=== PATIENT | female | born 1955 | race Caucasian/White ===

== ENCOUNTER → 2016-04-23 | Outpatient (CLI) | payer OTHER ==
[~2016-04-23] MED LIST: MELO15TA6 PO; OXYC-250 PO; TRAM50TA PO
--- NOTE | 2016-04-23 11:45 | RAD ---
Indication chronic pain. AP and lateral views of the right knee were obtained. No acute finding is seen. Significant degenerative changes are not apparent on plain films. IMPRESSION: Normal two-view examination of the right knee.
--- NOTE | 2016-04-23 12:04 | RAD ---
Indication disability determination. AP and lateral views of the lumbar spine were obtained. Vertebral height disc spaces and alignment are unremarkable. Small osteophytes are seen at multiple levels in the lower thoracic and upper lumbar spine. There are some very mild facet degenerative changes at L4-5 and L5-S1. Acute bony finding is not seen. IMPRESSION: Slight degenerative change in the lower thoracic and lumbar spine
== END | disposition home or self-care (01) ==
LOC: RAD 09:40
DX: M13.861 Other specified arthritis, right knee (principal); S83.511A Sprain of anterior cruciate ligament of right knee, initial encounter; S83.221A Peripheral tear of medial meniscus, current injury, right knee, initial encounter; M25.78 Osteophyte, vertebrae; M47.897 Other spondylosis, lumbosacral region; G89.29 Other chronic pain; X58.XXXA Exposure to other specified factors, initial encounter; Y93.89 Activity, other specified; Y92.89 Other specified places as the place of occurrence of the external cause; Y99.8 Other external cause status
CPT/HCPCS: 72100; 73560

== ENCOUNTER → 2019-05-19 | Outpatient (CLI) | payer MEDICARE ==
[2019-04-05 14:54] VITALS: BP 114/59
[~2019-05-19] MED LIST changes: +APIX5TAB PO; +ASPI325T8 PO; +CHOL200027 PO; +CYCL10TA2 PO; +LISI-338 PO; +MULT-650 PO; +OMEP40CA45 PO; -OXYC-250 PO; +OXYC1TAB22 PO; +WARF10TA45 PO; +ZOLPIDEM 5 MG TABLET. PO ONE
--- NOTE | 2019-05-25 13:42 | SLEEP ---
DATE OF STUDY: 05/19/2019 SLEEP STUDY REFERRING PHYSICIAN: Todd Carr MD The patient is a 63-year-old who weighs 187 pounds with a BMI of 35. The patient's Cairo score was 9. The patient underwent diagnostic sleep study performed at [facility]. During the night study, the patient spent 415 minutes in bed and slept for 375 minutes with a sleep efficiency of 90%. Sleep latency was 5 minutes with a REM latency of 215 minutes. Sleep architecture showed increased stage 1 and stage 2 sleep, normal slow wave and reduced REM sleep. During the night study, the patient had 38 obstructive apneas, no central apneas, 9 mixed apneas and 59 hypopneas. The patient's AHI was 17 per hour with a supine AHI of 17 per hour and a REM AHI of 88 per hour. EKG monitoring revealed an average heart rate of 101 beats per minute. There was intermittent tachycardia seen. Possible atrial tachycardia. PLMS were seen at an index of 24 per hour and 1 per hour caused EEG arousals. Nocturnal oximetry study revealed an average oxygen saturation of 94% with the lowest of 84%. A 6% of time oxygen saturation remained between 80% and 89%. Due to low AHI, the patient did not meet the split night criteria for CPAP initiation. IMPRESSION: 1. Moderate sleep apnea-hypopnea syndrome with worsening during rapid eye movement sleep. Total AHI 17 per hour with a rapid eye movement AHI of 88 per hour. 2. Moderate period limb movement in sleep without any significant EEG arousals. 3. Mild nocturnal hypoxia secondary to obstructive sleep apnea. 4. Abnormal EKG with intermittent sinus tachycardia, possible atrial tachycardia. RECOMMENDATION: 1. The patient returned to the sleep lab for CPAP titration. 2. Once the patient is optimally treated with CPAP, then follow up in 4-6 weeks to assess compliance and to document clinical improvement. 3. Weight loss is advised. 4. Avoid [employer] depressants. 5. Cautioned regarding driving until symptoms of sleep apnea resolve with the use of CPAP. 6. PLMS does not need to be treated unless the patient has symptoms of restless legs during the day. 7. If EKG abnormality does not improve with CPAP, then the patient may need Cardiology followup. JAVIER FLEMING MD DR: DARVIN/socorro JOB#: [id number] / [id number]
== END | disposition home or self-care (01) ==
LOC: SLPLAB 19:02
PROVIDERS: ATTEND Internal Medicine Pulmonary Disease
DX: G47.33 Obstructive sleep apnea (adult) (pediatric) (principal); G47.34 Idiopathic sleep related nonobstructive alveolar hypoventilation; G47.61 Periodic limb movement disorder
CPT/HCPCS: 95810

== ENCOUNTER → 2019-05-28 | Outpatient (CLI) | payer MEDICARE ==
[2019-04-05 14:54] VITALS: BP 114/59
[~2019-05-28] MED LIST changes: -ZOLPIDEM 5 MG TABLET. PO ONE
--- NOTE | 2019-05-28 08:45 | CARD ---
MR#: [id number] Date of Study: 05/28/2019 Ordering Physician: BLAS CAI, Referring Physician: BLAS CAI, Tech: Jolene Zhao [facility] APPROVED REPORT EXAM: Two-dimensional and M-mode echocardiogram with Doppler and color Doppler. Other Information Quality : GoodHR: 100bpm Rhythm : NSR INDICATION Pulmonary embolism. Hx: HTN, Tobacco abuse. 2D DIMENSIONS RVDd2.8 (2.9-3.5cm)IVSd1.0 (0.7-1.1cm) Aortic Root(2D)3.0 (2.0-3.7cm)LVDd3.9 (3.9-5.9cm) LVOT Diameter2.1 (1.8-2.4cm)PWd1.0 (0.7-1.1cm) LVDs3.0 (2.5-4.0cm)FS (%) 24.3 % SV32.8 mlLVEF(%)48.9 (>50%) Aortic Valve AoV Peak Rohit.125.8cm/Tao Peak GR.6.3mmHg LVOT Peak Rohit.91.8cm/sAVA (VMAX)2.51cm2 Mitral Valve MV E Lqkqdzst50.3cm/sMV DECEL AYAO145rc MV A Kgtbfuwy95.7cm/sE/A Ratio0.7 MV A Gmulaybs97nd Pulmonary Valve PV Peak Xpkhtfxr41.2cm/s Tricuspid Valve TR P. Ngnsyazw801zn/sRAP PJAFDOZJ0ceSq TR Peak Gr.19feCbCXRY20nnSu Pulmonary Vein S1 Vkofetsh78.5cm/sD2 Krotwtpj93.1cm/s LEFT VENTRICLE The left ventricle is normal size. There is normal left ventricular wall thickness. The left ventricu lar systolic function is normal. The Ejection Fraction is 55-60%. There is normal LV segmental wall m otion. Transmitral Doppler flow pattern is Grade I-abnormal relaxation pattern. RIGHT VENTRICLE The right ventricle is normal size. The right ventricular systolic function is normal. ATRIA The left atrium size is normal. The right atrium size is normal. The interatrial septum is intact wit h no evidence for an atrial septal defect or patent foramen ovale as noted on 2-D or Doppler imaging. AORTIC VALVE The aortic valve is normal in structure and function. No aortic regurgitation. No aortic valvular indio nosis. MITRAL VALVE The mitral valve is normal in structure and function. There is no mitral valve stenosis. No mitral va lve regurgitation noted. TRICUSPID VALVE The tricuspid valve is normal in structure and function. Trace tricuspid regurgitation. The PA pressu re was estimated at 20-25 mmHg. PULMONIC VALVE The pulmonary valve is normal in structure and function. No pulmonic valvular regurgitation. GREAT VESSELS The aortic root is normal in size. The ascending aorta is normal in size. The IVC is normal in size a nd collapses >50% with inspiration. PERICARDIAL EFFUSION There is no evidence of significant pericardial effusion. Critical Notification Critical Value: No <Conclusion> The left ventricular systolic function is normal. The Ejection Fraction is 55-60%. There is normal LV segmental wall motion. Transmitral Doppler flow pattern is Grade I-abnormal relaxation pattern. Trace tricuspid regurgitation. The PA pressure was estimated at 20-25 mmHg. There is no evidence of significant pericardial effusion. Signed by : Low Dennis, Electronically Approved : 05/28/2019 08:44:51
== END | disposition home or self-care (01) ==
LOC: ECHO 07:29
PROVIDERS: ATTEND Internal Medicine Cardiovascular Disease
DX: I26.99 Other pulmonary embolism without acute cor pulmonale (principal); I50.9 Heart failure, unspecified; I11.0 Hypertensive heart disease with heart failure; Z72.0 Tobacco use
CPT/HCPCS: 93306

== ENCOUNTER → 2019-06-02 | Outpatient (CLI) | payer MEDICARE ==
[2019-04-05 14:54] VITALS: BP 114/59
[~2019-06-02] MED LIST changes: +CONTRAST GIVEN. MC PRN; +IOHEXOL 350 MG/ML 100 ML VIAL. IV ONE
--- NOTE | 2019-06-02 12:10 | RAD ---
Chest CTA History: Shortness of air, recent pulmonary embolism Technique: After bolus of intravenous contrast, CT imaging was performed of the chest. Multiplanar reconstruction images to include MIP reconstruction images are submitted. Exposure: One or more of the following individualized dose reduction techniques were utilized for this examination: 1. Automated exposure control 2. Adjustment of the mA and/or kV according to patient size 3. Use of iterative reconstruction technique. Comparison: April 02, 2019 chest CTA Findings: Exam is limited for evaluation for pulmonary embolic disease due to degree of contrast opacification of the pulmonary arteries and also motion. No obvious embolism is identified in the main pulmonary arteries although otherwise not accurately evaluate. There is no pleural or pericardial fluid, pneumothorax, new infiltrate. There is a moderate size hiatal hernia, nonspecific wall thickening of involved segment. There is again left adrenal nodule about 1.8 cm. There has been cholecystectomy. Thoracic aortic caliber is within normal limits, no intraluminal flap. Significantly enlarged nodes are identified of the chest. Impression: 1. Exam is limited for evaluation for pulmonary embolic disease, no obvious embolism in the main pulmonary arteries. 2. There is a moderate size hiatal hernia, nonspecific wall thickening of involved segment. 3. There is again left adrenal nodule. Electronically signed by: Ghassan Tripp MD (06/02/2019 12:07 PM) [id number]
== END | disposition home or self-care (01) ==
LOC: CT 08:53
PROVIDERS: ATTEND Internal Medicine Pulmonary Disease
DX: J98.4 Other disorders of lung (principal); R59.0 Localized enlarged lymph nodes; K44.9 Diaphragmatic hernia without obstruction or gangrene; E27.8 Other specified disorders of adrenal gland; Z90.49 Acquired absence of other specified parts of digestive tract
CPT/HCPCS: 71275; Q9967

== ENCOUNTER 2019-10-11 10:57 | Inpatient (IN) | payer MEDICARE ==
[~2019-10-11] VITALS: Ht 157.5 cm; Wt 85.8 kg
[~2019-10-11 10:57] MED LIST changes: -CONTRAST GIVEN. MC PRN; -IOHEXOL 350 MG/ML 100 ML VIAL. IV ONE
--- NOTE | 2019-10-11 11:33 | PHYS DOC ---
Past Medical History Past Medical History: GERD, Hypertension, Other Additional Past Medical Histor: chronic knee pain Past Surgical History: Knee Replacement, Other Additional Past Surgical Histo: L armandion Smoking Status: Light Tobacco Smoker Alcohol Use: None Drug Use: None General Adult EDM: Chief Complaint: SHORTNESS OF BREATH HPI: HPI: Patient is a 64 year old female who presents with states for the last week she has had a cough and chest pressure and increased shortness of breath. She does smoke. She states that she went and saw her primary care doctor and they placed her on amoxicillin. She states she has 2 days of amoxicillin left. She states that she has been so short of breath that she is been getting dizzy. In the past the patient has a history of end STEMI, PE, BNP, hypertension, GERD. She is currently on Eliquis. She rates her pressure a 9 out of 10. Review of Systems: Review of Systems: \ Respiratory: cough or shortness of breath. [] Cardiovascular: Chest pressure. Denies chest pain or edema. [] Heart Score: HEART Score for Chest Pain: HEART Score for Chest Pain Response (Comments) Value History Moderately Suspicious 1 ECG Nonspecific Repolarizatio 1 Age >45 - < 65 1 Risk Factors >3 Risk Factors or Hx CAD 2 Troponin < Normal Limit 0 Total 5 Risk Factors: Risk Factors: DM, Current or recent (<one month) smoker, HTN, HLP, family history of CAD, obesity. Risk Scores: Score 0 - 3: 2.5% MACE over next 6 weeks - Discharge Home Score 4 - 6: 20.3% MACE over next 6 weeks - Admit for Clinical Observation Score 7 - 10: 72.7% MACE over next 6 weeks - Early Invasive Strategies Allergies: Allergies: Allergies Coded Allergies Type Severity Reaction Last Updated Verified No Known Drug Allergies 06/17/13 No Physical Exam: PE: Constitutional: Well developed, well nourished, no acute distress, non-toxic appearance. [] HENT: Normocephalic, atraumatic, bilateral external ears normal, oropharynx moist, no oral exudates, nose normal. [] Eyes: PERRLA, EOMI, conjunctiva normal, no discharge. [] Neck: Normal range of motion, no tenderness, supple, no stridor. [] Cardiovascular:Heart rate regular rhythm, no murmur [] Lungs & Thorax: upper Bilateral breath sounds clear and lower diminshed to auscultation [] Abdomen: Bowel sounds normal, soft, no tenderness, no masses, no pulsatile masses. [] Skin: Warm, dry, no erythema, no rash. [] Back: No tenderness, no CVA tenderness. [] Extremities: No tenderness, no cyanosis, no clubbing, ROM intact, no edema. [] Neurologic: Alert and oriented X 3, normal motor function, normal sensory function, no focal deficits noted. [] Psychologic: Affect normal, judgement normal, mood normal. [] EKG: EK and read by Dr. Duncan is sinus rhythm and no STEMI. [] Radiology/Procedures: Radiology/Procedures: [] Impression: [address] [address] IMAGING REPORT Signed PATIENT: RON DONATO ACCOUNT: [id number] : 1955 LOCATION: ER AGE: 64 SEX: F EXAM STATUS: REG ER ORD. PHYSICIAN: TRU EL APRN REASON: SOA PROCEDURE: PORTABLE CHEST 1V PORTABLE CHEST 1V Clinical Indication: Reason: SOA / Spl. Instructions: / History: Comparison: AP chest, 04/02/2019. Findings: Atherosclerotic aortic arch. There is a small to moderate-sized hiatal hernia. The cardiac size is normal. Stable small calcified granuloma left lung base. Lungs are otherwise clear. There is no pneumothorax. No pleural effusion is appreciated. No acute bone abnormality. IMPRESSION: 1. No acute cardiopulmonary process. 2. Small to moderate-sized hiatal hernia. Electronically signed by: Aguila Gibson MD (10/11/2019 12:13 PM) [id number] DICTATED and SIGNED BY: AGUILA GIBSON MD DATE: 10/11/[address] [address] IMAGING REPORT Signed PATIENT: RON DONATO ACCOUNT: [id number] : 1955 LOCATION: ER AGE: 64 SEX: F EXAM STATUS: REG ER ORD. PHYSICIAN: TRU EL APRN REASON: SOA, HX PE PROCEDURE: CT ANGIOGRAPHY CHEST EXAM: CT Pulmonary Angiogram INDICATION: Reason: SOA, HX PE / Spl. Instructions: IV OMNI 350 80 MLS / History: TECHNIQUE: Multi-detector row images were acquired from the thoracic inlet through the upper abdomen with the use of IV contrast. Sagittal and coronal images were acquired from the transaxial data. MIP images of the pulmonary arteries were obtained. All CT scans performed at this facility utilize dose optimization techniques as appropriate to the exam, including the following: Automated exposure control and adjustment of the mA and/or KV according to patient size (this includes techniques or standardized protocols for targeted exams where dose is indication/reason for exam). IV CONTRAST: Administered COMPARISON: CT abdomen and pelvis with IV contrast 06/17/2013, CT pulmonary angiogram of 04/02/2019. FINDINGS: PULMONARY ARTERIES: No pulmonary emboli are identified. CARDIOVASCULAR: Unremarkable Aorta is normal caliber. MEDIASTINUM & ANNE-MARIE: No adenopathy or masses. Large hiatal hernia is unchanged.. LUNGS: Calcified granuloma in the lingula. Otherwise no pulmonary infiltrate, nodule, or other focal abnormality. PLEURAL SPACE: No pleural effusions or pneumothorax. OSSEOUS & SOFT TISSUE: Unremarkable ABDOMEN: Left adrenal 1.9 cm nodule with punctate calcification at its superior aspect. This is unchanged from 2014. Cholecystectomy surgical changes. IMPRESSION: 1. No pulmonary emboli or acute cardiopulmonary process shown on CT. 2. Large hiatal hernia. 3. Postcholecystectomy changes and medial limb left adrenal nodule measuring 1.9 cm, likely an adenoma. Electronically signed by: Maribeth Alonso MD (10/11/2019 1:14 PM) [id number] DICTATED and SIGNED BY: MARIBETH ALONSO MD DATE: 10/11/19 1314 Course & Med Decision Making: Course & Med Decision Making Pertinent Labs and Imaging studies reviewed. (See chart for details) COVID-19 CRITERIA: The patient was evaluated during the global COVID-19 pandemic, and that diagnosis was suspected/considered upon their initial presentation. Their evaluation, treatment and testing was consistent with current guidelines for patients who present with complaints or symptoms that may be related to COVID-19. She denies radiation or actual pain. Speaks in full clear sentences but sounds breathless. Ambulatory with a steady gait. Skin pink warm and dry. Patient to be admitted due to health history and heart score. I think that this is respiratory related as any COPD exacerbation rather than cardiac. Patient admitted to Hospitalist. [] Curt Disclaimer: Curt Disclaimer: This electronic medical record was generated, in whole or in part, using a voice recognition dictation system. COVID-19 Patient Risks: Age 65 or older: No Sign of co-morbidity: Yes Exp to person + for COVID: No Exp to PUI: No Travel from affected area: No Lower respiratory symptoms: Yes Fever: No Other: No PPE Use: Full PPE with N95 mask or PAPR: Yes Departure Departure Impression: Primary Impression: Chest pain Qualified Codes: R07.9 - Chest pain, unspecified Disposition: 09 ADMITTED INPATIENT Admitting Physician: ASUNCION Condition: STABLE Referrals: WARD ROSS (PCP) Justicifation of Admission Dx: Justifications for Admission: Justification of Admission Dx: Yes Comments: COPD AND CHEST PRESSURE TRU EL [employer] Oct 11, 2019 11:33
[2019-10-11 12:04] LABS: BASO # 0.1 x10^3/uL (0.0-0.2); BASO % 1 % (0-3); EOS # 0.4 x10^3/uL (0.0-0.7); EOS % 6 % (0-3); HEMATOCRIT 39.5 % (36.0-47.0); HEMOGLOBIN 13.2 g/dL (12.0-15.5); LYMPH # 2.3 x10^3/uL (1.0-4.8); LYMPH % 32 % (24-48); MEAN CORPUSCULAR HEMOGLOBIN 29 pg (25-35); MEAN CORPUSCULAR HGB CONC 34 g/dL (31-37); MEAN CORPUSCULAR VOLUME 87 fL (79-100); MONO # 0.6 x10^3/uL (0.0-1.1); MONO % 8 % (0-9); NEUT # 3.8 x10^3/uL (1.8-7.7); NEUT % 54 % (31-73); PLATELET COUNT 398 x10^3/uL (140-400); RED BLOOD COUNT 4.52 x10^6/uL (3.50-5.40); RED CELL DISTRIBUTION WIDTH 13.3 % (11.5-14.5); WHITE BLOOD COUNT 7.1 x10^3/uL (4.0-11.0)
[2019-10-11 12:05] LABS: BILIRUBIN,URINE NEGATIVE (NEG); CLARITY,URINE CLEAR; COLOR,URINE YELLOW; NITRITE,URINE NEGATIVE (NEG); PH,URINE 5.5 (<5.0-8.0); PROTEIN,URINE NEGATIVE (NEG-TRACE); UROBILINOGEN,URINE 0.2 mg/dL (0.2 mg/dL)
[2019-10-11 12:11] LABS: AMPHETAMINE/METHAMPHETAMINE NEG (NEG); BARBITURATES NEG (NEG); BENZODIAZEPINES NEG (NEG); CANNABINOIDS NEG (NEG); COCAINE NEG (NEG); METHADONE NEG (NEG); OPIATES NEG (NEG); PHENCYCLIDINE NEG (NEG)
[2019-10-11 12:14] LABS: SQUAMOUS EPITHELIAL CELL,UR MOD /LPF
[2019-10-11 12:15] LABS: BACTERIA,URINE FEW /HPF (0-FEW); RBC,URINE 0 /HPF (0-2)
[2019-10-11 12:16] LABS: CALCIUM 8.9 mg/dL (8.5-10.1); POTASSIUM 4.3 mmol/L (3.5-5.1)
--- NOTE | 2019-10-11 12:16 | RAD ---
PORTABLE CHEST 1V Clinical Indication: Reason: SOA / Spl. Instructions: / History: Comparison: AP chest, 04/02/2019. Findings: Atherosclerotic aortic arch. There is a small to moderate-sized hiatal hernia. The cardiac size is normal. Stable small calcified granuloma left lung base. Lungs are otherwise clear. There is no pneumothorax. No pleural effusion is appreciated. No acute bone abnormality. IMPRESSION: 1. No acute cardiopulmonary process. 2. Small to moderate-sized hiatal hernia. Electronically signed by: Aguila Gibson MD (10/11/2019 12:13 PM) [id number]
[2019-10-11 12:19] LABS: PROTHROMBIN TIME PATIENT 14.4 SEC (11.7-14.0)
[2019-10-11 12:22] LABS: ALBUMIN 3.2 g/dL (3.4-5.0); TOTAL BILIRUBIN 0.3 mg/dL (0.2-1.0); TOTAL PROTEIN 6.5 g/dL (6.4-8.2)
[2019-10-11] MEDS ORDERED: ALBUTEROL SULFATE 2.5 MG/3 ML NEBU. NEB ONE (12:45)
[2019-10-11] MEDS ORDERED: CONTRAST GIVEN. MC PRN (12:45)
[2019-10-11] MEDS ORDERED: IOHEXOL 350 MG/ML 100 ML VIAL. IV ONE (12:45)
--- NOTE | 2019-10-11 13:17 | RAD ---
EXAM: CT Pulmonary Angiogram INDICATION: Reason: SOA, HX PE / Spl. Instructions: IV OMNI 350 80 MLS / History: TECHNIQUE: Multi-detector row images were acquired from the thoracic inlet through the upper abdomen with the use of IV contrast. Sagittal and coronal images were acquired from the transaxial data. MIP images of the pulmonary arteries were obtained. All CT scans performed at this facility utilize dose optimization techniques as appropriate to the exam, including the following: Automated exposure control and adjustment of the mA and/or KV according to patient size (this includes techniques or standardized protocols for targeted exams where dose is indication/reason for exam). IV CONTRAST: Administered COMPARISON: CT abdomen and pelvis with IV contrast 06/17/2013, CT pulmonary angiogram of 04/02/2019. FINDINGS: PULMONARY ARTERIES: No pulmonary emboli are identified. CARDIOVASCULAR: Unremarkable Aorta is normal caliber. MEDIASTINUM & ANNE-MARIE: No adenopathy or masses. Large hiatal hernia is unchanged.. LUNGS: Calcified granuloma in the lingula. Otherwise no pulmonary infiltrate, nodule, or other focal abnormality. PLEURAL SPACE: No pleural effusions or pneumothorax. OSSEOUS & SOFT TISSUE: Unremarkable ABDOMEN: Left adrenal 1.9 cm nodule with punctate calcification at its superior aspect. This is unchanged from 2014. Cholecystectomy surgical changes. IMPRESSION: 1. No pulmonary emboli or acute cardiopulmonary process shown on CT. 2. Large hiatal hernia. 3. Postcholecystectomy changes and medial limb left adrenal nodule measuring 1.9 cm, likely an adenoma. Electronically signed by: Huma Alonso MD (10/11/2019 1:14 PM) [id number]
[2019-10-11] MEDS ORDERED: methylPREDNISolone SOD SUCC PF 125 MG/2 ML VIAL. IV ONE (13:30)
[2019-10-11 13:53] LABS: BASE EXCESS COOX 0 mmol/L (-3-3); HCO3 COOX 25 mmol/L (21-28); METHEMOGLOBIN 0.2 % (0.0-1.9); OXYHEMOGLOBIN 93.1 %; PCO2 COOX 46 mmHg (35-46); PO2 COOX 81 mmHg (65-108); SAT O2 COOX 96 % (92-99)
--- NOTE | 2019-10-11 13:53 | EKG ---
[facility] [address] [place] [address] Test Date: 2019-10-11 Test Time: 11:31:50 Pat Name: RON DONATO Department: Room: Gender: F Detasseler: : 1955 Requested By: TRU EL Order Number: [id number] Reading MD: Measurements Intervals [place] Rate: 88 P: 59 NC: 136 QRS: -46 QRSD: 88 T: 19 QT: 364 QTc: 444 Interpretive Statements SINUS RHYTHM ABNORMAL LEFT AXIS DEVIATION LEFT ANTERIOR FASCICULAR BLOCK QRS(T) CONTOUR ABNORMALITY CONSIDER ANTEROSEPTAL MYOCARDIAL DAMAGE ABNORMAL ECG RI6.02 No previous ECG available for comparison
[2019-10-11] MEDS ORDERED: fentaNYL PF VIAL 100 MCG/2 ML VIAL IV PRN (14:15)
[2019-10-11] MEDS ORDERED: ONDANSETRON PF 4 MG/2 ML VIAL. IV PRN ×2 (14:15→15:45)
--- NOTE | 2019-10-11 14:26 | PDOC1 ---
History and Physical Date of Admission Date of Admission DATE: 10/11/19 TIME: 14:26 Identification/Chief Complaint Chief Complaint Shortness of breath, fatigue Source Source: Patient History of Present Illness History of Present Illness Ms Bland is a 64 yo F w/ PMHx PE, HTN, GERD, OA, smoker [id number] who p/w increased shortness of breath for the past 7 days. She does have cough with initially no sputum production, but rhinitis and left maxillary pain. She was treated for sinusitis with amoxicilin by her PCP, but has not felt like she is improving. She has felt dizzy, did not have syncopal episode. She did have some chest tightness with pressure, non-radiating 8/10 at worst. Nothing improves or worsens it. She does admit that lately she has been taking 1 year old eliquis samples as she has been having difficulty affording this. I have offered transition to coumadin. She denies fever or chills or recent sick contacts. She does continue to smoke. She was tachycardic and tachypneic with O2 saturations above 88%, she underwent CTPA performed with no evidence of acute problem. Labs essentially WNL. ABG 7.36/46/81 on room air. Admitted for further treatment of her respiratory distress Past Medical History Cardiovascular: HTN Pulmonary: Pulmonary embolus GI: GERD Heme/Onc: No pertinent hx Hepatobiliary: No pertinent hx Psych: No pertinent hx Musculoskeletal: Other Rheumatologic: No pertinent hx Infectious disease: No pertinent hx Renal/: No pertinent hx Endocrine: No pertinent hx Past Surgical History Past Surgical History: Total knee replacement, Hysterectomy Family History Family History: Diabetes, Hypertension Social History Smoke: 1 pack per day ALCOHOL: none Drugs: None Current Problem List Problem List Problems Medical Problems: (1) Chest pain Status: Acute Current Medications Current Medications Current Medications Albuterol Sulfate (Ventolin Neb Soln) 2.5 mg 1X ONCE NEB ; Start 10/11/19 at 12:45; Stop 10/11/19 at 12:46; Status DC Iohexol (Omnipaque 350 Mg/ml) 80 ml 1X ONCE IV Last administered on 10/11/19at 12:51; Start 10/11/19 at 12:45; Stop 10/11/19 at 12:46; Status DC Info (CONTRAST GIVEN -- Rx MONITORING) 1 each PRN DAILY PRN MC SEE COMMENTS; Start 10/11/19 at 12:45; Stop 10/13/19 at 12:44 Methylprednisolone Sodium Succinate (SOLU-Medrol 125MG VIAL) 125 mg 1X ONCE IV Last administered on 10/11/19at 13:50; Start 10/11/19 at 13:30; Stop 10/11/19 at 13:31; Status DC Ondansetron HCl (Zofran) 4 mg PRN Q8HRS PRN IV NAUSEA/VOMITING; Start 10/11/19 at 14:15; Stop 10/12/19 at 14:14 Fentanyl Citrate (Fentanyl 2ml Vial) 50 mcg PRN Q1HR PRN IV PAIN; Start at 14:15; Stop 10/12/19 at 14:14 Active Scripts Active Coumadin (Warfarin Sodium) 10 Mg Tablet 6 Mg PO DAILY PRN 30 Days Eliquis (Apixaban) 5 Mg Tablet 5 Mg PO BID 30 Days 10mg BID for 7 days, then 5mg BID thereafter for 90 days Cyclobenzaprine Hcl 10 Mg Tablet 1 Tab PO PRN TID PRN 10 Days Reported Lisinopril 5 Mg Tablet 1 Tab PO DAILY Omeprazole 40 Mg Capsule.dr 1 Cap PO DAILY Vitamin D3 (Cholecalciferol (Vitamin D3)) 2,000 Unit Tablet 1 Tab PO DAILY 30 Days Centrum Silver Women Tablet (Multivits-Min/Iron/FA/Lutein) 1 Each Tablet 1 Each PO DAILY Aspirin 325 Mg Tablet 1 Tab PO DAILY Mobic (Meloxicam) 15 Mg Tablet 15 Mg PO DAILY Percocet 10-325 Mg Tablet (Oxycodone/Acetaminophen) 1 Each Tablet 1 Each PO PRN QID PRN Allergies Allergies: Coded Allergies: No Known Drug Allergies (Unverified , 06/17/13) ROS General: YES: Fatigue, Malaise; No: Chills, Night Sweats, Appetite, Other PSYCHOLOGICAL ROS: No: Anxiety, Behavioral Disorder, Concentration difficultie, Decreased libido, Depression, Disorientation, Hallucinations, Hostility, Irritablity, Memory difficulties, Mood Swings, Obsessive thoughts, Physical abuse, Sexual abuse, Sleep disturbances, Suicidal ideation, Other Eyes: No Blurry vision, No Decreased vision, No Double vision, No Dry eyes, No Excessive tearing, No Eye Pain, No Itchy Eyes, No Loss of vision, No Photophobia, No Scotomata, No Uses contacts, No Uses glasses, No Other HEENT: No: Heacaches, Visual Changes, Hearing change, Nasal congestion, Nasal discharge, Oral lesions, Sinus pain, Sore Throat, Epistaxis, Sneezing, Snoring, Tinnitus, Vertigo, Vocal changes, Other ALLERGY AND IMMUNOLOGY: No: Hives, Insect Bite Sensitivity, Itchy/Watery Eyes, Nasal Congestion, Post Nasal Drip, Seasonal Allergies, Other Hematological and Lymphatic: YES: Blood Clots; No: Bleeding Problems, Blood Transfusions, Brusing, Night Sweats, Pallor, Swollen Lymph Nodes, Other ENDOCRINE: No: Breast Changes, Galactorrhea, Hair Pattern Changes, Hot Flashes, Malaise/lethargy, Mood Swings, Palpitations, Polydipsia/polyuria, Skin Changes, Temperature Intolerance, Unexpected Weight Changes, Other Breast: No New/Changing Breast Lumps, No Nipple changes, No Nipple discharge, No Other Respiratory: YES: Cough, Shortness of breath, SOB with excertion, Tachypnea, Wheezing; No: Hemoptysis, Orthopnea, Pleuritic Pain, Sputum Changes, Stridor, Other Cardiovascular: yes Chest Pain; No Palpitations, No Orthopnea, No Paroxysmal Noc. Dyspnea, No Edema, No Lt Headedness, No Other Gastrointestinal: No Nausea, No Vomiting, No Abdominal Pain, No Diarrhea, No Constipation, No Melena, No Hematochezia, No Other Genitourinary: No Dysuria, No Frequency, No Incontinence, No Hematuria, No Retention, No Discharge, No Urgency, No Pain, No Flank Pain, No Other, No , No , No , No , No , No , No Musculoskeletal: No Gait Disturbance, No Joint Pain, No Joint Stiffness, No Joint Swelling, No Muscle Pain, No Muscular Weakness, No Pain In:, No Swelling In:, No Other Neurological: No Behavorial Changes, No Bowel/Bladder ControlChng, No Confusion, No Dizziness, No Gait Disturbance, No Headaches, No Impaired Coord/balance, No Memory Loss, No Numbness/Tingling, No Seizures, No Speech Problems, No Tremors, No Visual Changes, No Weakness, No Other Skin: No Dry Skin, No Eczema, No Hair Changes, No Lumps, No Mole Changes, No Mottling, No Nail Changes, No Pruritus, No Rash, No Skin Lesion Changes, No Other, No Acne Physical Exam General: Alert, Oriented X3, Cooperative, moderate distress HEENT: Atraumatic, PERRLA, EOMI, Mucous membr. moist/pink Lungs: Other (Diffuse wheezing) Heart: S1S2, RRR, no thrills, no rubs, no gallops, no murmurs Abdomen: Normal bowel sounds, Soft, No tenderness, No hepatosplenomegaly, No masses Rectal Exam: not examined Extremities: No clubbing, No cyanosis, No edema, Normal pulses, No tenderness/swelling Skin: No rashes, No breakdown, No significant lesion Neuro: Normal gait, Normal speech, Strength at 5/5 X4 ext, Normal tone, Sensation intact, Cranial nerves 3-12 NL, Reflexes 2+ Psych/Mental Status: Mental status NL, Mood NL Vitals Vitals Vital Signs Date Time Temp Pulse Resp B/P (MAP) Pulse Ox O2 Delivery O2 Flow Rate FiO2 10/11/19 12:56 115/62 (79) Room Air 10/11/19 12:35 72 95 10/11/19 11:33 99.0 22 99.0 Labs Labs Laboratory Tests Test 10/11/19 11:50 10/11/19 11:54 10/11/19 12:30 White Blood Count 7.1 x10^3/uL (4.0-11.0) Red Blood Count 4.52 x10^6/uL (3.50-5.40) Hemoglobin 13.2 g/dL (12.0-15.5) Hematocrit 39.5 % (36.0-47.0) Mean Corpuscular Volume 87 fL (79-100) Mean Corpuscular Hemoglobin 29 pg (25-35) Mean Corpuscular Hemoglobin Concent 34 g/dL (31-37) Red Cell Distribution Width 13.3 % (11.5-14.5) Platelet Count 398 x10^3/uL (140-400) Neutrophils (%) (Auto) 54 % (31-73) Lymphocytes (%) (Auto) 32 % (24-48) Monocytes (%) (Auto) 8 % (0-9) Eosinophils (%) (Auto) 6 % (0-3) Basophils (%) (Auto) 1 % (0-3) Neutrophils # (Auto) 3.8 x10^3/uL (1.8-7.7) Lymphocytes # (Auto) 2.3 x10^3/uL (1.0-4.8) Monocytes # (Auto) 0.6 x10^3/uL (0.0-1.1) Eosinophils # (Auto) 0.4 x10^3/uL (0.0-0.7) Basophils # (Auto) 0.1 x10^3/uL (0.0-0.2) Prothrombin Time 14.4 SEC (11.7-14.0) Prothromb Time International Ratio 1.2 (0.8-1.1) Sodium Level 140 mmol/L (136-145) Potassium Level 4.3 mmol/L (3.5-5.1) Chloride Level 104 mmol/L (98-107) Carbon Dioxide Level 25 mmol/L (21-32) Anion Gap 11 (6-14) Blood Urea Nitrogen 16 mg/dL (7-20) Creatinine 1.0 mg/dL (0.6-1.0) Estimated GFR (Cockcroft-Gault) 56.0 BUN/Creatinine Ratio 16 (6-20) Glucose Level 113 mg/dL (70-99) Calcium Level 8.9 mg/dL (8.5-10.1) Total Bilirubin 0.3 mg/dL (0.2-1.0) Aspartate Amino Transf (AST/SGOT) 18 U/L (15-37) Alanine Aminotransferase (ALT/SGPT) 30 U/L (14-59) Alkaline Phosphatase 119 U/L (46-116) Troponin I Quantitative < 0.017 ng/mL (0.000-0.055) AO-Uqs-R-Type Natriuretic Peptide 20 pg/mL (0-124) Total Protein 6.5 g/dL (6.4-8.2) Albumin 3.2 g/dL (3.4-5.0) Albumin/Globulin Ratio 1.0 (1.0-1.7) Urine Collection Type Unknown Urine Color Yellow Urine Clarity Clear Urine pH 5.5 (<5.0-8.0) Urine Specific [place] 1.010 (1.000-1.030) Urine Protein Negative mg/dL (NEG-TRACE) Urine Glucose (UA) Negative mg/dL (NEG) Urine Ketones (Stick) Negative mg/dL (NEG) Urine Blood Negative (NEG) Urine Nitrite Negative (NEG) Urine Bilirubin Negative (NEG) Urine Urobilinogen Dipstick 0.2 mg/dL (0.2 mg/dL) Urine Leukocyte Esterase Trace (NEG) Urine RBC 0 /HPF (0-2) Urine WBC 5-10 /HPF (0-4) Urine Squamous Epithelial Cells Mod /LPF Urine Bacteria Few /HPF (0-FEW) Urine Mucus Marked /LPF Urine Opiates Screen Neg (NEG) Urine Methadone Screen Neg (NEG) Urine Barbiturates Neg (NEG) Urine Phencyclidine Screen Neg (NEG) Urine Amphetamine/Methamphetamine Neg (NEG) Urine Benzodiazepines Screen Neg (NEG) Urine Cocaine Screen Neg (NEG) Urine Cannabinoids Screen Neg (NEG) Urine Ethyl Alcohol Neg (NEG) O2 Saturation 96 % (92-99) Arterial Blood pH 7.36 (7.35-7.45) Arterial Blood pCO2 at Patient Temp 46 mmHg (35-46) Arterial Blood pO2 at Patient Temp 81 mmHg (65-108) Arterial Blood HCO3 25 mmol/L (21-28) Arterial Blood Base Excess 0 mmol/L (-3-3) Oxyhemoglobin 93.1 % Methemoglobin 0.2 % (0.0-1.9) Carbon Monoxide, Quantitative 2.4 % (0.0-1.9) FiO2 21 Laboratory Tests Test 10/11/19 11:50 10/11/19 11:54 10/11/19 12:30 White Blood Count 7.1 x10^3/uL (4.0-11.0) Red Blood Count 4.52 x10^6/uL (3.50-5.40) Hemoglobin 13.2 g/dL (12.0-15.5) Hematocrit 39.5 % (36.0-47.0) Mean Corpuscular Volume 87 fL (79-100) Mean Corpuscular Hemoglobin 29 pg (25-35) Mean Corpuscular Hemoglobin Concent 34 g/dL (31-37) Red Cell Distribution Width 13.3 % (11.5-14.5) Platelet Count 398 x10^3/uL (140-400) Neutrophils (%) (Auto) 54 % (31-73) Lymphocytes (%) (Auto) 32 % (24-48) Monocytes (%) (Auto) 8 % (0-9) Eosinophils (%) (Auto) 6 % (0-3) Basophils (%) (Auto) 1 % (0-3) Neutrophils # (Auto) 3.8 x10^3/uL (1.8-7.7) Lymphocytes # (Auto) 2.3 x10^3/uL (1.0-4.8) Monocytes # (Auto) 0.6 x10^3/uL (0.0-1.1) Eosinophils # (Auto) 0.4 x10^3/uL (0.0-0.7) Basophils # (Auto) 0.1 x10^3/uL (0.0-0.2) Prothrombin Time 14.4 SEC (11.7-14.0) Prothromb Time International Ratio 1.2 (0.8-1.1) Sodium Level 140 mmol/L (136-145) Potassium Level 4.3 mmol/L (3.5-5.1) Chloride Level 104 mmol/L (98-107) Carbon Dioxide Level 25 mmol/L (21-32) Anion Gap 11 (6-14) Blood Urea Nitrogen 16 mg/dL (7-20) Creatinine 1.0 mg/dL (0.6-1.0) Estimated GFR (Cockcroft-Gault) 56.0 BUN/Creatinine Ratio 16 (6-20) Glucose Level 113 mg/dL (70-99) Calcium Level 8.9 mg/dL (8.5-10.1) Total Bilirubin 0.3 mg/dL (0.2-1.0) Aspartate Amino Transf (AST/SGOT) 18 U/L (15-37) Alanine Aminotransferase (ALT/SGPT) 30 U/L (14-59) Alkaline Phosphatase 119 U/L (46-116) Troponin I Quantitative < 0.017 ng/mL (0.000-0.055) ZU-Wjs-Y-Type Natriuretic Peptide 20 pg/mL (0-124) Total Protein 6.5 g/dL (6.4-8.2) Albumin 3.2 g/dL (3.4-5.0) Albumin/Globulin Ratio 1.0 (1.0-1.7) Urine Collection Type Unknown Urine Color Yellow Urine Clarity Clear Urine pH 5.5 (<5.0-8.0) Urine Specific [place] 1.010 (1.000-1.030) Urine Protein Negative mg/dL (NEG-TRACE) Urine Glucose (UA) Negative mg/dL (NEG) Urine Ketones (Stick) Negative mg/dL (NEG) Urine Blood Negative (NEG) Urine Nitrite Negative (NEG) Urine Bilirubin Negative (NEG) Urine Urobilinogen Dipstick 0.2 mg/dL (0.2 mg/dL) Urine Leukocyte Esterase Trace (NEG) Urine RBC 0 /HPF (0-2) Urine WBC 5-10 /HPF (0-4) Urine Squamous Epithelial Cells Mod /LPF Urine Bacteria Few /HPF (0-FEW) Urine Mucus Marked /LPF Urine Opiates Screen Neg (NEG) Urine Methadone Screen Neg (NEG) Urine Barbiturates Neg (NEG) Urine Phencyclidine Screen Neg (NEG) Urine Amphetamine/Methamphetamine Neg (NEG) Urine Benzodiazepines Screen Neg (NEG) Urine Cocaine Screen Neg (NEG) Urine Cannabinoids Screen Neg (NEG) Urine Ethyl Alcohol Neg (NEG) O2 Saturation 96 % (92-99) Arterial Blood pH 7.36 (7.35-7.45) Arterial Blood pCO2 at Patient Temp 46 mmHg (35-46) Arterial Blood pO2 at Patient Temp 81 mmHg (65-108) Arterial Blood HCO3 25 mmol/L (21-28) Arterial Blood Base Excess 0 mmol/L (-3-3) Oxyhemoglobin 93.1 % Methemoglobin 0.2 % (0.0-1.9) Carbon Monoxide, Quantitative 2.4 % (0.0-1.9) FiO2 21 Images Images CXR: Atherosclerotic aortic arch. There is a small to moderate-sized hiatal hernia. The cardiac size is normal. Stable small calcified granuloma left lung base. Lungs are otherwise clear. There is no pneumothorax. No pleural effusion is appreciated. No acute bone abnormality. IMPRESSION: 1. No acute cardiopulmonary process. 2. Small to moderate-sized hiatal hernia. CTPA: PULMONARY ARTERIES: No pulmonary emboli are identified. CARDIOVASCULAR: Unremarkable Aorta is normal caliber. MEDIASTINUM & ANNE-MARIE: No adenopathy or masses. Large hiatal hernia is unchanged.. LUNGS: Calcified granuloma in the lingula. Otherwise no pulmonary infiltrate, nodule, or other focal abnormality PLEURAL SPACE: No pleural effusions or pneumothorax. OSSEOUS & SOFT TISSUE: Unremarkable ABDOMEN: Left adrenal 1.9 cm nodule with punctate calcification at its superior aspect. This is unchanged from 2014. Cholecystectomy surgical changes. IMPRESSION: 1. No pulmonary emboli or acute cardiopulmonary process shown on CT. 2. Large hiatal hernia. 3. Postcholecystectomy changes and medial limb left adrenal nodule measuring 1.9 cm, likely an adenoma. VTE Prophylaxis Ordered VTE Prophylaxis Devices: Yes VTE Pharmacological Prophylaxi: Yes Assessment/Plan Assessment/Plan A/P: Shortness of breath - still smoking lives with smokers. Counseled on cessation. treat for acute COPD exacerbation, check TSH, trend troponins Chest pain - with large hiatal hernia, atypical for cardiac chest pain. Will cont PPI, trend troponins, monitor on telemetry H/o PE - with right heart strain on CT. cont on eliquis Smoker - counseled on cessation Hypertension - Monitor, hold meds History of arthritis - ok for tylenol, muscle relaxants Gastroesophageal reflux disease - cont PPI Hiatal hernia - PPI FEN - General diet PPX - eliquis FULL CODE Dispo - inpatient for COPD exacerbation Justicifation of Admission Dx: Justifications for Admission: Justification of Admission Dx: Yes Acute COPD Exacerbation: Acute COPD Exacerbation SUNDAR WHITESIDE MD Oct 11, 2019 14:26
[2019-10-11] MEDS ORDERED: IPRATRPIUM/ALBUTEROL 0.5/2.5MG 3 ML NEBU. NEB PRN (15:45)
[2019-10-11] MEDS ORDERED: ALBUTEROL SULFATE 2.5 MG/3 ML NEBU. NEB PRN (15:45)
[2019-10-11] MEDS: methylPREDNISolone SOD SUCC PF 40 MG/ML VIAL. IV SCH ×2 (17:00→20:33)
[2019-10-11] MEDS ORDERED: ANTI-COAG MONITOR BY PHARMACY. MC PRN (17:00)
[2019-10-11] MEDS ORDERED: BUDESONIDE 0.5 MG/2 ML NEBU. NEB PRN (18:30)
[2019-10-11 19:00] VITALS: BP 137/75
--- NOTE | 2019-10-11 20:00 | NUR ---
The patient, RON DONATO, 64 y/o, F admitted by SUNDAR WHITESIDE MD, was given written information regarding hospital policies, unit procedures and contact persons. Valuables were checked and all questions answered. Dr. Walker and Anival notified of consults. No needs currently. Notified pt she will be npo after midnight in case any procedures need to be completed in am. Verbalized understanding and agreement.
[2019-10-11] MEDS: MONTELUKAST SODIUM 10 MG TABLET. PO SCH (20:32)
[2019-10-11] MEDS: ACETAMINOPHEN 325 MG TABLET. PO PRN (20:32)
[2019-10-11] MEDS: PANTOPRAZOLE 40 MG TABLET.DR. PO SCH (20:32)
[2019-10-11] MEDS: APIXABAN 5 MG TABLET. PO SCH (20:32)
[2019-10-11] MEDS ORDERED: BUDESONIDE 0.5 MG/2 ML NEBU. NEB SCH (21:00)
[2019-10-11] MEDS ORDERED: CYCL5TAB PO (21:17)
[2019-10-11 23:00] VITALS: BP 145/73
[2019-10-12 03:00] VITALS: BP 140/82
[2019-10-12] MEDS: methylPREDNISolone SOD SUCC PF 40 MG/ML VIAL. IV SCH ×3 (05:32→21:13)
[2019-10-12 07:00] VITALS: BP 150/89
[2019-10-12] MEDS: APIXABAN 5 MG TABLET. PO SCH ×2 (07:49→21:12)
[2019-10-12] MEDS: ASPIRIN 325 MG TABLET PO SCH (07:49)
[2019-10-12] MEDS: PANTOPRAZOLE 40 MG TABLET.DR. PO SCH (07:49)
[2019-10-12] MEDS: CHOLECALCIFEROL (VITAMIN D3) 1,000 UNIT TABLET PO SCH (07:49)
[2019-10-12] MEDS: ACETAMINOPHEN 325 MG TABLET. PO PRN ×2 (08:37→21:18)
--- NOTE | 2019-10-12 09:02 | PDOC2 ---
JYOTI ARTHUR APRN 10/12/19 0902: CARDIAC CONSULT DATE OF CONSULT Date of Consult DATE: 10/12/19 TIME: 08:53 REASON FOR CONSULT Reason for Consult: Chest pain REFERRING PHYSICIAN Referring Physician: Pauline Martins APRN SOURCE Source: Chart review, Patient HISTORY OF PRESENT ILLNESS HISTORY OF PRESENT ILLNESS This is a 64 yo female who presented secondary to chest tightness and palpitations. Has been intermittent for the last 2-3 days. Worse with exertion. Associated with dizziness. No diaphoresis or SOA. Reports h/o palpitations. Tele noted with ST. No fevers or illness. PAST MEDICAL HISTORY Cardiovascular: HTN Pulmonary: Pulmonary embolus GI: GERD Musculoskeletal: Osteoarthritis PAST SURGICAL HISTORY Past Surgical History: Hysterectomy FAMILY HISTORY Family History: Diabetes, Hypertension SOCIAL HISTORY Smoke: 1 pack per day ALCOHOL: occassional Drugs: None CURRENT MEDICATIONS CURRENT MEDICATIONS Current Medications Medications (Trade) Dose Ordered Sig/Marleny Route PRN Reason Start Time Stop Time Status Last Admin Dose Admin Iohexol (Omnipaque 350 Mg/ml) 80 ml 1X ONCE IV 10/11/19 12:45 10/11/19 12:46 DC 10/11/19 12:51 Methylprednisolone Sodium Succinate (SOLU-Medrol 125MG VIAL) 125 mg 1X ONCE IV 10/11/19 13:30 10/11/19 13:31 DC 10/11/19 13:50 Apixaban (Eliquis) 5 mg BID PO 10/11/19 21:00 10/12/19 07:49 Aspirin (Priscilla Aspirin) 325 mg DAILY PO 10/12/19 09:00 10/12/19 07:49 Vitamin D (Vitamin D3) 2,000 unit DAILY PO 10/12/19 09:00 10/12/19 07:49 Pantoprazole Sodium (Protonix) 40 mg DAILYAC PO 10/11/19 16:30 10/12/19 07:49 Methylprednisolone Sodium Succinate (SOLU-Medrol 40MG VIAL) 40 mg Q8HRS IV 10/11/19 17:00 10/12/19 05:32 Montelukast Sodium (Singulair) 10 mg QHS PO 10/11/19 21:00 10/11/19 20:32 Acetaminophen (Tylenol) 650 mg PRN Q4HRS PRN PO MILD PAIN / TEMP > 100.3'F 10/11/19 20:30 10/12/19 08:37 ALLERGIES ALLERGIES: Coded Allergies: No Known Drug Allergies (Unverified , 06/17/13) ROS Review of System 14 point ROS conducted with pertinent positives noted above in HPI PHYSICAL EXAM General: Alert, Oriented X3, Cooperative, No acute distress HEENT: Atraumatic, Mucous membr. moist/pink Lungs: Clear to auscultation, Normal air movement Heart: Regular rate (SR/ST) Abdomen: Soft, No tenderness Extremities: No edema, Normal pulses Skin: No significant lesion Neuro: Normal speech, Sensation intact Psych/Mental Status: Mental status NL, Mood NL MUSCULOSKELETAL: Osteoarthritic changes both hands VITALS/I&O VITALS/I&O: Vital Signs Date Time Temp Pulse Resp B/P (MAP) Pulse Ox O2 Delivery O2 Flow Rate FiO2 10/12/19 08:00 Room Air 10/12/19 07:00 97.7 97 18 150/89 (109) 96 97.7 I & O 10/11/19 10/11/19 10/12/19 15:00 23:00 07:00 Intake Total 500 ml Balance 500 ml LABS Lab: Laboratory Tests Test 10/11/19 11:50 10/11/19 11:54 10/11/19 12:30 10/11/19 18:54 White Blood Count 7.1 x10^3/uL (4.0-11.0) Red Blood Count 4.52 x10^6/uL (3.50-5.40) Hemoglobin 13.2 g/dL (12.0-15.5) Hematocrit 39.5 % (36.0-47.0) Mean Corpuscular Volume 87 fL (79-100) Mean Corpuscular Hemoglobin 29 pg (25-35) Mean Corpuscular Hemoglobin Concent 34 g/dL (31-37) Red Cell Distribution Width 13.3 % (11.5-14.5) Platelet Count 398 x10^3/uL (140-400) Neutrophils (%) (Auto) 54 % (31-73) Lymphocytes (%) (Auto) 32 % (24-48) Monocytes (%) (Auto) 8 % (0-9) Eosinophils (%) (Auto) 6 % (0-3) H Basophils (%) (Auto) 1 % (0-3) Neutrophils # (Auto) 3.8 x10^3/uL (1.8-7.7) Lymphocytes # (Auto) 2.3 x10^3/uL (1.0-4.8) Monocytes # (Auto) 0.6 x10^3/uL (0.0-1.1) Eosinophils # (Auto) 0.4 x10^3/uL (0.0-0.7) Basophils # (Auto) 0.1 x10^3/uL (0.0-0.2) Prothrombin Time 14.4 SEC (11.7-14.0) H Prothrombin Time INR 1.2 (0.8-1.1) H Sodium Level 140 mmol/L (136-145) Potassium Level 4.3 mmol/L (3.5-5.1) Chloride Level 104 mmol/L (98-107) Carbon Dioxide Level 25 mmol/L (21-32) Anion Gap 11 (6-14) Blood Urea Nitrogen 16 mg/dL (7-20) Creatinine 1.0 mg/dL (0.6-1.0) Estimated GFR (Cockcroft-Gault) 56.0 BUN/Creatinine Ratio 16 (6-20) Glucose Level 113 mg/dL (70-99) H Calcium Level 8.9 mg/dL (8.5-10.1) Total Bilirubin 0.3 mg/dL (0.2-1.0) Aspartate Amino Transferase (AST) 18 U/L (15-37) Alanine Aminotransferase (ALT) 30 U/L (14-59) Alkaline Phosphatase 119 U/L (46-116) H Troponin I Quantitative < 0.017 ng/mL (0.000-0.055) < 0.017 ng/mL (0.000-0.055) ET-Odd-I-Type Natriuretic Peptide 20 pg/mL (0-124) Total Protein 6.5 g/dL (6.4-8.2) Albumin 3.2 g/dL (3.4-5.0) L Albumin/Globulin Ratio 1.0 (1.0-1.7) Thyroid Stimulating Hormone (TSH) 2.494 uIU/mL (0.358-3.74) Urine Collection Type Unknown Urine Color Yellow Urine Clarity Clear Urine pH 5.5 (<5.0-8.0) Urine Specific [place] 1.010 (1.000-1.030) Urine Protein Negative mg/dL (NEG-TRACE) Urine Glucose (UA) Negative mg/dL (NEG) Urine Ketones (Stick) Negative mg/dL (NEG) Urine Blood Negative (NEG) Urine Nitrite Negative (NEG) Urine Bilirubin Negative (NEG) Urine Urobilinogen Dipstick 0.2 mg/dL (0.2 mg/dL) Urine Leukocyte Esterase Trace (NEG) Urine RBC 0 /HPF (0-2) Urine WBC 5-10 /HPF (0-4) Urine Squamous Epithelial Cells Mod /LPF Urine Bacteria Few /HPF (0-FEW) Urine Mucus Marked /LPF Urine Opiates Screen Neg (NEG) Urine Methadone Screen Neg (NEG) Urine Barbiturates Neg (NEG) Urine Phencyclidine Screen Neg (NEG) Urine Amphetamine/Methamphetamine Neg (NEG) Urine Benzodiazepines Screen Neg (NEG) Urine Cocaine Screen Neg (NEG) Urine Cannabinoids Screen Neg (NEG) Urine Ethyl Alcohol Neg (NEG) O2 Saturation 96 % (92-99) Arterial Blood pH 7.36 (7.35-7.45) Arterial Blood pCO2 at Patient Temp 46 mmHg (35-46) Arterial Blood pO2 at Patient Temp 81 mmHg (65-108) Arterial Blood HCO3 25 mmol/L (21-28) Arterial Blood Base Excess 0 mmol/L (-3-3) Oxyhemoglobin 93.1 % Methemoglobin 0.2 % (0.0-1.9) Carbon Monoxide, Quantitative 2.4 % (0.0-1.9) H FiO2 21 Laboratory Tests 10/11/19 11:50 Laboratory Tests 10/11/19 11:50 ECHOCARDIOGRAM ECHOCARDIOGRAM <Conclusion> The left ventricular systolic function is normal. The Ejection Fraction is 55-60%. There is normal LV segmental wall motion. Transmitral Doppler flow pattern is Grade I-abnormal relaxation pattern. Trace tricuspid regurgitation. The PA pressure was estimated at 20-25 mmHg. There is no evidence of significant pericardial effusion. DATE: 05/28/19 0836 ASSESSMENT/PLAN ASSESSMENT/PLAN Chest pain; atypical. AMI ruled out. Recent echo with preserved LV systolic function Palpitations; tele noted with ST overnight. No evidence of AFIB Hypertension; controlled H/o PE; OAC with Eliquis. CTA negative for PE GERD Tobaccoism Recommendations TSH Lipids Will add low-dose metoprolol for rate control unless significant wheezing is noted Outpatient event monitor secondary to palpitations, tachycardia Outpatient ischemic evaluation Continue OAC with Eliquis F/u in our office with Dr. Cai as scheduled. BLAS CAI MD 10/12/19 1758: CARDIAC CONSULT ASSESSMENT/PLAN ASSESSMENT/PLAN Patient seen and evaluated Agree with our nurse practitioners assessment and plan. Chest pain. Atypical. Negative troponins. Echo with intact LV function. Continue to monitor. Beta-blockers as above. Outpatient ischemia evaluation. Palpitations. Sinus rhythm. No significant arrhythmias at this time. History of pulmonary emboli. CT scan negative for PE. Continue anticoagulation as above. Gastroesophageal reflux disease. Medical treatment. Thank you for allowing us to participate in the care of your patient. JYOTI ARTHUR APRN Oct 12, 2019 09:02 BLAS CAI MD Oct 12, 2019 17:58
[2019-10-12 09:26] LABS: CHOLESTEROL/HDL RATIO 5.7
[2019-10-12 10:39] VITALS: BP 141/78
--- NOTE | 2019-10-12 11:10 | CONS ---
DATE OF CONSULTATION: PULMONARY CONSULTATION ATTENDING PHYSICIAN: Dr. Molina. REASON FOR CONSULTATION: Dyspnea. HISTORY OF PRESENT ILLNESS: The patient is a 64-year-old who has history of COPD with ongoing tobaccoism, history of PE, hypertension, GERD. She was brought into the hospital with complaint of shortness of breath and cough and wheezing. No fever, no chills. The patient has been recently treated for sinusitis with amoxicillin by PCP. The patient was given the breathing treatments and IV steroids. She underwent CT angiogram and was reviewed by me. There was no evidence of pulmonary embolism. There were post-cholecystectomy changes and [id number] hiatal hernia and left adrenal adenoma. She feels better. She is on room air and her chest pain is resolved. I have been asked to see her for further evaluation. PAST MEDICAL HISTORY: Significant for history of hypertension, history of pulmonary embolism, history of GERD. PAST SURGICAL HISTORY: Total knee replacement and hysterectomy. FAMILY HISTORY: Diabetes and hypertension. SOCIAL HISTORY: Smoked for about 35 to 40 years and now half pack would last 3-4 days. REVIEW OF SYSTEMS: Twelve-point system obtained. Pertinent positives discussed in my history of present illness, otherwise noncontributory. All systems that were negative were reviewed as well. HOME MEDICATIONS: Reviewed including Eliquis. FAMILY HISTORY: Noncontributory to lungs. PHYSICAL EXAMINATION: VITAL SIGNS: Reviewed, afebrile, pulse ox 95% on room air. NECK: Supple. LUNGS: Clear. CARDIOVASCULAR: With a regular rate. ABDOMEN: Soft. EXTREMITIES: With no pitting edema. LABORATORY DATA: Reviewed. White cell count 7.1, hemoglobin 13.2 and platelets are 398. IMPRESSION: 1. Dyspnea with coughing and chest pain. This was related to acute bronchitis along with chronic obstructive pulmonary disease exacerbation. No evidence of pulmonary embolism. 2. The patient with prior history of pulmonary embolism, on Eliquis. No evidence of recurrent thromboembolic disease. 3. ABGs with no evidence of any ventilatory failure. RECOMMENDATIONS: 1. Discussed with the patient about smoking cessation and counseling was provided. 2. She is clinically better and she could be discharged home. 3. Change to oral steroids. 4. Continue albuterol and Pulmicort nebs. 5. Continue home Eliquis. 6. Stable pulmonary status post discharge. JAVIER FLEMING MD DR: Kendrick JOB#: [id number] / [id number]
--- NOTE | 2019-10-12 12:38 | PDOC ---
PROGRESS NOTES Chief Complaint Chief Complaint Shortness of breath - still smoking lives with smokers. Counseled on cessation. treat for acute COPD exacerbation Chest pain - with large hiatal hernia, atypical for cardiac chest pain. Will cont PPI, trend troponins, monitor on telemetry H/o PE - with right heart strain on CT. cont on eliquis Smoker - counseled on cessation Hypertension - Monitor, hold meds History of arthritis - ok for tylenol, muscle relaxants Gastroesophageal reflux disease - cont PPI Hiatal hernia - PPI FEN - General diet PPX - eliquis FULL CODE Dispo - inpatient for COPD exacerbation History of Present Illness History of Present Illness no acute issues overnight. covid test pending Vitals Vitals Vital Signs Date Time Temp Pulse Resp B/P (MAP) Pulse Ox O2 Delivery O2 Flow Rate FiO2 10/12/19 10:39 97.8 108 19 141/78 (99) 95 Room Air 97.8 Physical Exam General: Alert, Oriented X3, Cooperative, moderate distress Lungs: Clear Abdomen: Normal bowel sounds, Soft, No tenderness, No hepatosplenomegaly, No masses Extremities: No clubbing, No cyanosis, No edema, Normal pulses, No tenderness/swelling Skin: No rashes, No breakdown, No significant lesion Labs LABS Laboratory Tests Test 10/11/19 18:54 Troponin I Quantitative < 0.017 ng/mL (0.000-0.055) Assessment and Plan Assessmemt and Plan Problems Medical Problems: (1) Chest pain Status: Acute Comment Review of Relevant I have reviewed the following items teddy (where applicable) has been applied. Labs Laboratory Tests Test 10/11/19 11:50 10/11/19 11:54 10/11/19 12:30 10/11/19 18:54 White Blood Count 7.1 x10^3/uL (4.0-11.0) Red Blood Count 4.52 x10^6/uL (3.50-5.40) Hemoglobin 13.2 g/dL (12.0-15.5) Hematocrit 39.5 % (36.0-47.0) Mean Corpuscular Volume 87 fL (79-100) Mean Corpuscular Hemoglobin 29 pg (25-35) Mean Corpuscular Hemoglobin Concent 34 g/dL (31-37) Red Cell Distribution Width 13.3 % (11.5-14.5) Platelet Count 398 x10^3/uL (140-400) Neutrophils (%) (Auto) 54 % (31-73) Lymphocytes (%) (Auto) 32 % (24-48) Monocytes (%) (Auto) 8 % (0-9) Eosinophils (%) (Auto) 6 % (0-3) Basophils (%) (Auto) 1 % (0-3) Neutrophils # (Auto) 3.8 x10^3/uL (1.8-7.7) Lymphocytes # (Auto) 2.3 x10^3/uL (1.0-4.8) Monocytes # (Auto) 0.6 x10^3/uL (0.0-1.1) Eosinophils # (Auto) 0.4 x10^3/uL (0.0-0.7) Basophils # (Auto) 0.1 x10^3/uL (0.0-0.2) Prothrombin Time 14.4 SEC (11.7-14.0) Prothromb Time International Ratio 1.2 (0.8-1.1) Sodium Level 140 mmol/L (136-145) Potassium Level 4.3 mmol/L (3.5-5.1) Chloride Level 104 mmol/L (98-107) Carbon Dioxide Level 25 mmol/L (21-32) Anion Gap 11 (6-14) Blood Urea Nitrogen 16 mg/dL (7-20) Creatinine 1.0 mg/dL (0.6-1.0) Estimated GFR (Cockcroft-Gault) 56.0 BUN/Creatinine Ratio 16 (6-20) Glucose Level 113 mg/dL (70-99) Calcium Level 8.9 mg/dL (8.5-10.1) Total Bilirubin 0.3 mg/dL (0.2-1.0) Aspartate Amino Transf (AST/SGOT) 18 U/L (15-37) Alanine Aminotransferase (ALT/SGPT) 30 U/L (14-59) Alkaline Phosphatase 119 U/L (46-116) Troponin I Quantitative < 0.017 ng/mL (0.000-0.055) < 0.017 ng/mL (0.000-0.055) FK-Dzn-[id number]-Type Natriuretic Peptide 20 pg/mL (0-124) Total Protein 6.5 g/dL (6.4-8.2) Albumin 3.2 g/dL (3.4-5.0) Albumin/Globulin Ratio 1.0 (1.0-1.7) Triglycerides Level 150 mg/dL (0-150) Cholesterol Level 247 mg/dL (0-200) LDL Cholesterol, Calculated 174 mg/dL (0-100) VLDL Cholesterol, Calculated 30 mg/dL (0-40) Non-HDL Cholesterol Calculated 204 mg/dL (0-129) HDL Cholesterol 43 mg/dL (40-60) Cholesterol/HDL Ratio 5.7 Thyroid Stimulating Hormone (TSH) 2.494 uIU/mL (0.358-3.74) Urine Collection Type Unknown Urine Color Yellow Urine Clarity Clear Urine pH 5.5 (<5.0-8.0) Urine Specific [place] 1.010 (1.000-1.030) Urine Protein Negative mg/dL (NEG-TRACE) Urine Glucose (UA) Negative mg/dL (NEG) Urine Ketones (Stick) Negative mg/dL (NEG) Urine Blood Negative (NEG) Urine Nitrite Negative (NEG) Urine Bilirubin Negative (NEG) Urine Urobilinogen Dipstick 0.2 mg/dL (0.2 mg/dL) Urine Leukocyte Esterase Trace (NEG) Urine RBC 0 /HPF (0-2) Urine WBC 5-10 /HPF (0-4) Urine Squamous Epithelial Cells Mod /LPF Urine Bacteria Few /HPF (0-FEW) Urine Mucus Marked /LPF Urine Opiates Screen Neg (NEG) Urine Methadone Screen Neg (NEG) Urine Barbiturates Neg (NEG) Urine Phencyclidine Screen Neg (NEG) Urine Amphetamine/Methamphetamine Neg (NEG) Urine Benzodiazepines Screen Neg (NEG) Urine Cocaine Screen Neg (NEG) Urine Cannabinoids Screen Neg (NEG) Urine Ethyl Alcohol Neg (NEG) O2 Saturation 96 % (92-99) Arterial Blood pH 7.36 (7.35-7.45) Arterial Blood pCO2 at Patient Temp 46 mmHg (35-46) Arterial Blood pO2 at Patient Temp 81 mmHg (65-108) Arterial Blood HCO3 25 mmol/L (21-28) Arterial Blood Base Excess 0 mmol/L (-3-3) Oxyhemoglobin 93.1 % Methemoglobin 0.2 % (0.0-1.9) Carbon Monoxide, Quantitative 2.4 % (0.0-1.9) FiO2 21 Laboratory Tests Test 10/11/19 18:54 Troponin I Quantitative < 0.017 ng/mL (0.000-0.055) Microbiology 10/11/19 Urine Culture - Final, Complete Medications Current Medications Albuterol Sulfate (Ventolin Neb Soln) 2.5 mg 1X ONCE NEB ; Start 10/11/19 at 12:45; Stop 10/11/19 at 12:46; Status DC Iohexol (Omnipaque 350 Mg/ml) 80 ml 1X ONCE IV Last administered on 10/11/19at 12:51; Start 10/11/19 at 12:45; Stop 10/11/19 at 12:46; Status DC Info (CONTRAST GIVEN -- Rx MONITORING) 1 each PRN DAILY PRN MC SEE COMMENTS; Start 10/11/19 at 12:45; Stop 10/13/19 at 12:44 Methylprednisolone Sodium Succinate (SOLU-Medrol 125MG VIAL) 125 mg 1X ONCE IV Last administered on 10/11/19at 13:50; Start 10/11/19 at 13:30; Stop 10/11/19 at 13:31; Status DC Ondansetron HCl (Zofran) 4 mg PRN Q8HRS PRN IV NAUSEA/VOMITING; Start 10/11/19 at 14:15; Stop 10/11/19 at 15:40; Status DC Fentanyl Citrate (Fentanyl 2ml Vial) 50 mcg PRN Q1HR PRN IV PAIN; Start 10/11/19 at 14:15; Stop 10/12/19 at 14:14 Ondansetron HCl (Zofran) 4 mg PRN Q4HRS PRN IV NAUSEA/VOMITING; Start 10/11/19 at 15:45 Albuterol/ Ipratropium (Duoneb) 3 ml PRN Q4HRS PRN NEB SHORTNESS OF BREATH; Start 10/11/19 at 15:45; Status UNV Apixaban (Eliquis) 5 mg BID PO Last administered on 10/12/19at 07:49; Start 10/11/19 at 21:00 Aspirin (Priscilla Aspirin) 325 mg DAILY PO Last administered on 10/12/19at 07:49; Start 10/12/19 at 09:00 Vitamin D (Vitamin D3) 2,000 unit DAILY PO Last administered on 10/12/19at 07:49; Start 10/12/19 at 09:00 Pantoprazole Sodium (Protonix) 40 mg DAILYAC PO Last administered on 10/12/19at 07:49; Start 10/11/19 at 16:30 Methylprednisolone Sodium Succinate (SOLU-Medrol 40MG VIAL) 40 mg Q8HRS IV Last administered on 10/12/19at 05:32; Start 10/11/19 at 17:00 Montelukast Sodium (Singulair) 10 mg QHS PO Last administered on 10/11/19at 20:32; Start 10/11/19 at 21:00 Budesonide (Pulmicort) 0.5 mg BID NEB ; Start 10/11/19 at 21:00; Stop 10/11/19 at 18:28; Status DC Albuterol Sulfate (Ventolin Neb Soln) 2.5 mg PRN Q4HRS PRN NEB sob; Start 10/11/19 at 15:45 Info (Anti-Coagulation Monitoring By Pharmacy) 1 each PRN DAILY PRN SEE COM MENTS Last administered on 10/12/19at 11:38; Start 10/11/19 at 17:00 Budesonide (Pulmicort) 0.5 mg PRN Q12HR PRN NEB SHORTNESS OF BREATH; Start 10/11/19 at 18:30 Acetaminophen (Tylenol) 650 mg PRN Q4HRS PRN PO MILD PAIN / TEMP > 100.3'F Last administered on 10/12/19at 08:37; Start 10/11/19 at 20:30 Active Scripts Active Coumadin (Warfarin Sodium) 10 Mg Tablet 6 Mg PO DAILY PRN 30 Days Eliquis (Apixaban) 5 Mg Tablet 5 Mg PO BID 30 Days 10mg BID for 7 days, then 5mg BID thereafter for 90 days Reported Cyclobenzaprine Hcl 5 Mg Tablet 1 Tab PO TID PRN Lisinopril 5 Mg Tablet 1 Tab PO DAILY Omeprazole 40 Mg Capsule. 1 Cap PO DAILY Vitamin D3 (Cholecalciferol (Vitamin D3)) 2,000 Unit Tablet 1 Tab PO DAILY 30 Days Centrum Silver Women Tablet (Multivits-Min/Iron/FA/Lutein) 1 Each Tablet 1 Each PO DAILY Aspirin 325 Mg Tablet 1 Tab PO DAILY Percocet 10-325 Mg Tablet (Oxycodone/Acetaminophen) 1 Each Tablet 1 Each PO PRN QID PRN Vitals/I & O Vital Sign - Last 24 Hours 10/11/19 10/11/19 10/11/19 10/11/19 12:56 13:46 13:56 14:26 Pulse 72 80 72 B/P (MAP) 115/62 (79) 100/65 (77) 115/64 (81) 117/69 (85) Pulse Ox 97 97 95 O2 Delivery Room Air Room Air Room Air Room Air 10/11/19 10/11/19 10/11/19 10/11/19 15:26 16:26 17:26 19:00 Temp 98.3 98.3 Pulse 96 98 100 99 Resp 20 B/P (MAP) 147/79 (101) 117/77 (90) 124/76 (92) 137/75 (95) Pulse Ox 95 95 95 95 O2 Delivery Room Air Room Air Room Air 10/11/19 10/11/19 10/12/19 10/12/19 19:40 23:00 03:00 07:00 Temp 97.7 97.5 97.7 97.7 97.5 97.7 Pulse 116 85 97 Resp 20 18 18 B/P (MAP) 145/73 (97) 140/82 (101) 150/89 (109) Pulse Ox 94 93 96 O2 Delivery Room Air Room Air 10/12/19 10/12/19 08:00 10:39 Temp 97.8 97.8 Pulse 108 Resp 19 B/P (MAP) 141/78 (99) Pulse Ox 95 O2 Delivery Room Air Room Air Intake and Output 10/11/19 10/11/19 10/12/19 15:00 23:00 07:00 Intake Total 500 ml Balance 500 ml HARRY BYERS MD Oct 12, 2019 12:38
[2019-10-12 15:00] VITALS: BP 145/80
[2019-10-12] MEDS ORDERED: IV NORMAL SALINE 500ML BAG 500 ML IV ONE (15:45)
--- NOTE | 2019-10-12 15:52 | NUR ---
SW following. Spoke with RN and reviewed chart. RN identified no SW needs. Pt lives at home with spouse. Pt on room air and IV steroids but will discharge home on oral medications. Pt COVID pending. Pt to have out-patient stress test per RN. No further SW needs at this time.
[2019-10-12 16:30] VITALS: BP 149/76
[2019-10-12] MEDS ORDERED: ATORVASTATIN CALCIUM 20 MG TABLET PO SCH (21:00)
[2019-10-12] MEDS: MONTELUKAST SODIUM 10 MG TABLET. PO SCH (21:12)
[2019-10-12] MEDS: METOPROLOL TART IMMED RELEASE 25 MG TABLET. PO SCH (21:13)
[2019-10-12] MEDS: oxyCODONE/APAP 10/325 1 TAB TABLET PO PRN (23:18)
[2019-10-12 23:45] VITALS: BP 137/78
[2019-10-13 03:58] VITALS: BP 115/72
[2019-10-13] MEDS: methylPREDNISolone SOD SUCC PF 40 MG/ML VIAL. IV SCH ×2 (06:25→14:00)
[2019-10-13 07:00] VITALS: BP 112/66
[2019-10-13] MEDS: METOPROLOL TART IMMED RELEASE 25 MG TABLET. PO SCH (08:49)
[2019-10-13] MEDS: PANTOPRAZOLE 40 MG TABLET.DR. PO SCH (08:49)
[2019-10-13] MEDS: CHOLECALCIFEROL (VITAMIN D3) 1,000 UNIT TABLET PO SCH (08:49)
[2019-10-13] MEDS: APIXABAN 5 MG TABLET. PO SCH (08:49)
[2019-10-13] MEDS: ASPIRIN 325 MG TABLET PO SCH (08:49)
--- NOTE | 2019-10-13 10:55 | NUR ---
SW following. Discussed with RN, pt from home, room air, COVID-19 negative. Pt is discharging home today with self care. RN advised no SW needs.
[2019-10-13 11:00] VITALS: BP 127/71
[2019-10-13] MEDS: oxyCODONE/APAP 10/325 1 TAB TABLET PO PRN (11:33)
--- NOTE | 2019-10-13 11:35 | PDOC ---
PULMONARY PROGRESS NOTES Subjective no soa Vitals Vital Signs Date Time Temp Pulse Resp B/P (MAP) Pulse Ox O2 Delivery O2 Flow Rate FiO2 10/13/19 11:00 98.4 73 14 127/71 (89) 97 Room Air 98.4 General: Alert, No acute distress Lungs: Clear Cardiovascular: S1, S2 Abdomen: Soft, Non-tender Labs Laboratory Tests Test 10/11/19 11:45 10/11/19 11:50 10/11/19 11:54 10/11/19 12:30 Coronavirus (COVID-19)(PCR) Not detected (NOT DETECT.) White Blood Count 7.1 x10^3/uL (4.0-11.0) Red Blood Count 4.52 x10^6/uL (3.50-5.40) Hemoglobin 13.2 g/dL (12.0-15.5) Hematocrit 39.5 % (36.0-47.0) Mean Corpuscular Volume 87 fL (79-100) Mean Corpuscular Hemoglobin 29 pg (25-35) Mean Corpuscular Hemoglobin Concent 34 g/dL (31-37) Red Cell Distribution Width 13.3 % (11.5-14.5) Platelet Count 398 x10^3/uL (140-400) Neutrophils (%) (Auto) 54 % (31-73) Lymphocytes (%) (Auto) 32 % (24-48) Monocytes (%) (Auto) 8 % (0-9) Eosinophils (%) (Auto) 6 % (0-3) Basophils (%) (Auto) 1 % (0-3) Neutrophils # (Auto) 3.8 x10^3/uL (1.8-7.7) Lymphocytes # (Auto) 2.3 x10^3/uL (1.0-4.8) Monocytes # (Auto) 0.6 x10^3/uL (0.0-1.1) Eosinophils # (Auto) 0.4 x10^3/uL (0.0-0.7) Basophils # (Auto) 0.1 x10^3/uL (0.0-0.2) Prothrombin Time 14.4 SEC (11.7-14.0) Prothromb Time International Ratio 1.2 (0.8-1.1) Sodium Level 140 mmol/L (136-145) Potassium Level 4.3 mmol/L (3.5-5.1) Chloride Level 104 mmol/L (98-107) Carbon Dioxide Level 25 mmol/L (21-32) Anion Gap 11 (6-14) Blood Urea Nitrogen 16 mg/dL (7-20) Creatinine 1.0 mg/dL (0.6-1.0) Estimated GFR (Cockcroft-Gault) 56.0 BUN/Creatinine Ratio 16 (6-20) Glucose Level 113 mg/dL (70-99) Calcium Level 8.9 mg/dL (8.5-10.1) Total Bilirubin 0.3 mg/dL (0.2-1.0) Aspartate Amino Transf (AST/SGOT) 18 U/L (15-37) Alanine Aminotransferase (ALT/SGPT) 30 U/L (14-59) Alkaline Phosphatase 119 U/L (46-116) Troponin I Quantitative < 0.017 ng/mL (0.000-0.055) [id number]-Type Natriuretic Peptide 20 pg/mL (0-124) Total Protein 6.5 g/dL (6.4-8.2) Albumin 3.2 g/dL (3.4-5.0) Albumin/Globulin Ratio 1.0 (1.0-1.7) Triglycerides Level 150 mg/dL (0-150) Cholesterol Level 247 mg/dL (0-200) LDL Cholesterol, Calculated 174 mg/dL (0-100) VLDL Cholesterol, Calculated 30 mg/dL (0-40) Non-HDL Cholesterol Calculated 204 mg/dL (0-129) HDL Cholesterol 43 mg/dL (40-60) Cholesterol/HDL Ratio 5.7 Thyroid Stimulating Hormone (TSH) 2.494 uIU/mL (0.358-3.74) Urine Collection Type Unknown Urine Color Yellow Urine Clarity Clear Urine pH 5.5 (<5.0-8.0) Urine Specific [place] 1.010 (1.000-1.030) Urine Protein Negative mg/dL (NEG-TRACE) Urine Glucose (UA) Negative mg/dL (NEG) Urine Ketones (Stick) Negative mg/dL (NEG) Urine Blood Negative (NEG) Urine Nitrite Negative (NEG) Urine Bilirubin Negative (NEG) Urine Urobilinogen Dipstick 0.2 mg/dL (0.2 mg/dL) Urine Leukocyte Esterase Trace (NEG) Urine RBC 0 /HPF (0-2) Urine WBC 5-10 /HPF (0-4) Urine Squamous Epithelial Cells Mod /LPF Urine Bacteria Few /HPF (0-FEW) Urine Mucus Marked /LPF Urine Opiates Screen Neg (NEG) Urine Methadone Screen Neg (NEG) Urine Barbiturates Neg (NEG) Urine Phencyclidine Screen Neg (NEG) Urine Amphetamine/Methamphetamine Neg (NEG) Urine Benzodiazepines Screen Neg (NEG) Urine Cocaine Screen Neg (NEG) Urine Cannabinoids Screen Neg (NEG) Urine Ethyl Alcohol Neg (NEG) O2 Saturation 96 % (92-99) Arterial Blood pH 7.36 (7.35-7.45) Arterial Blood pCO2 at Patient Temp 46 mmHg (35-46) Arterial Blood pO2 at Patient Temp 81 mmHg (65-108) Arterial Blood HCO3 25 mmol/L (21-28) Arterial Blood Base Excess 0 mmol/L (-3-3) Oxyhemoglobin 93.1 % Methemoglobin 0.2 % (0.0-1.9) Carbon Monoxide, Quantitative 2.4 % (0.0-1.9) FiO2 21 Test 10/11/19 18:54 Troponin I Quantitative < 0.017 ng/mL (0.000-0.055) Medications Active Scripts Medications Dose Route/Sig Max Daily Dose Days Date Category Dose Instructions Cyclobenzaprine Hcl 5 Mg Tablet 1 Tab PO TID PRN 10/11/19 Reported Coumadin (Warfarin Sodium) 10 Mg Tablet 6 Mg PO DAILY PRN 30 04/05/19 Rx Eliquis (Apixaban) 5 Mg Tablet 5 Mg PO BID 30 04/05/19 Rx 10mg BID for 7 days, then 5mg BID thereafter for 90 days Lisinopril 5 Mg Tablet 1 Tab PO DAILY 04/02/19 Reported Omeprazole 40 Mg Capsule.dr 1 Cap PO DAILY 04/02/19 Reported Vitamin D3 (Cholecalciferol (Vitamin D3)) 2,000 Unit Tablet 1 Tab PO DAILY 30 04/02/19 Reported Centrum Silver Women Tablet (Multivits-Min/Iron/FA/Lutein) 1 Each Tablet 1 Each PO DAILY 04/02/19 Reported Aspirin 325 Mg Tablet 1 Tab PO DAILY 04/02/19 Reported Percocet 10-325 Mg Tablet (Oxycodone/Acetaminophen) 1 Each Tablet 1 Tab PO PRN QID PRN 06/17/13 Reported Impression . 1. Dyspnea with coughing and chest pain. This was related to acute bronchitis along with chronic obstructive pulmonary disease exacerbation. No evidence of pulmonary embolism. 2. The patient with prior history of pulmonary embolism, on Eliquis. No evidence of recurrent thromboembolic disease. 3. ABGs with no evidence of any ventilatory failure. Plan . 1. Discussed with the patient about smoking cessation and counseling was provided. 2. She is clinically better and she could be discharged home. 3. Change to oral steroids. 4. Continue albuterol and Pulmicort nebs. 5. Continue home Eliquis. 6. Stable pulmonary status post discharge. JAVIER FLEMING MD Oct 13, 2019 11:35
[2019-10-13] MEDS ORDERED: PRED20TA PO (11:53)
--- NOTE | 2019-10-13 12:50 | PDOC ---
CARDIO Progress Notes Date and Time Date of Service 10/13/19 Time of Evaluation 1245 Subjective Subjective: No Chest Pain, No shortness of breath, No Dizziness, Other (Feeling much better, palpitations resolved. ) Vitals Vitals Vital Signs Date Time Temp Pulse Resp B/P (MAP) Pulse Ox O2 Delivery O2 Flow Rate FiO2 10/13/19 11:33 Room Air 10/13/19 11:00 98.4 73 14 127/71 (89) 97 98.4 Weight Weight [ ] Input and Output Intake and Output Intake and Output 10/13/19 06:59 Intake Total 1600 ml Balance 1600 ml Intake Oral 1600 ml # Voids 6 Microbiology Micro Microbiology 10/11/19 Urine Culture - Final, Complete Physical Exam HEENT: Neck Supple W Full Motion Chest: Symmetric LUNGS: Clear to Auscultation Heart: S1S2, RRR, no thrills Abdomen: Soft N/T Extremities: No Edema Neurology: alert, oriented, follow commands Assessment Assessment 1. Chest pain; atypical. AMI ruled out. Recent echo with preserved LV systolic function 2. Palpitations; tele noted with ST. No evidence of AFIB. Rate now controlled with addition of BB. 3. Hypertension; controlled 4. Hyperlipidemia 5. H/o PE; OAC with Eliquis. CTA negative for PE 6. GERD 7. Tobaccoism; discussed/encouraged cessation Recommendations Low-dose metoprolol for rate control Add statin Outpatient event monitor secondary to palpitations, tachycardia Outpatient ischemic evaluation Continue OAC with Eliquis F/u in our office with Dr. Carrasquillo as scheduled. Justicifation of Admission Dx: Justifications for Admission: Justification of Admission Dx: Yes Acute COPD Exacerbation: Acute COPD Exacerbation JYOTI ARTHUR APRN Oct 13, 2019 12:50
[2019-10-13] MEDS ORDERED: METO25TA4 PO (14:05)
[2019-10-13] MEDS ORDERED: ATOR20TA58 PO (14:05)
--- NOTE | 2019-10-13 14:14 | PDOC3 ---
Discharge Summary Visit Information Date of Admission: Oct 11, 2019 Date of Discharge: Oct 13, 2019 Final Diagnosis Problems Medical Problems: (1) Chest pain Status: Acute Brief Hospital Course Allergies Allergies Coded Allergies Type Severity Reaction Last Updated Verified No Known Drug Allergies 06/17/13 No Vital Signs GENERAL: No apparent distress. Alert and oriented. HEENT: Head normocephalic, atraumatic. NECK: Supple LUNGS: Clear to auscultation. HEART: RRR, S1, S2 present, pulses intact ABDOMEN: Soft, positive bowel sounds. EXTREMITIES: No cyanosis or edema. NEUROLOGIC: Normal speech, normal tone PSYCHIATRIC: Normal affect, normal mood. SKIN: No ulceration. Vital Signs Date Time Temp Pulse Resp B/P (MAP) Pulse Ox O2 Delivery O2 Flow Rate FiO2 10/13/19 11:33 Room Air 10/13/19 11:00 98.4 73 14 127/71 (89) 97 98.4 Lab Results Laboratory Tests Test 10/11/19 18:54 Troponin I Quantitative < 0.017 ng/mL (0.000-0.055) Brief Hospital Course 64 yo F w/ PMHx PE, HTN, GERD, OA, smoker [id number] who p/w increased shortness of breath for the past 7 days. She does have cough with initially no sputum production, but rhinitis and left maxillary pain. She was treated for sinusitis with amoxicilin by her PCP, but has not felt like she is improving. She has felt dizzy, did not have syncopal episode. She did have some chest tightness with pressure, non-radiating 8/10 at worst. Nothing improves or worsens it. She does admit that lately she has been taking 1 year old eliquis sample s as she has been having difficulty affording this. I have offered transition to coumadin. She denies fever or chills or recent sick contacts. She does continue to smoke. She was tachycardic and tachypneic with O2 saturations above 88%, she underwent CTPA performed with no evidence of acute problem. Labs essentially WNL. ABG 7.36/46/81 on room air. Admitted for further treatment of her respiratory distress Assessment Assessment 1. Chest pain; atypical. AMI ruled out. Recent echo with preserved LV systolic function 2. Palpitations; tele noted with ST. No evidence of AFIB. Rate now controlled with addition of BB. Outpatient event monitor secondary to palpitations, tachycardia 3. Hypertension; controlled 4. Hyperlipidemia: statin added 5. H/o PE; OAC with Eliquis. CTA negative for PE 6. GERD 7. Tobaccoism; discussed/encouraged cessation 8. mild copd exacerbation: dc on oral steroids okay to dc today F/u in our office with Dr. Carrasquillo as scheduled. Discharge Information Condition at Discharge: Improved Disposition/Orders: D/C to Home Scheduled Apixaban (Eliquis) 5 Mg Tablet, 5 MG PO BID for [place] pulmonary embolism for 30 Days, #74 10mg BID for 7 days, then 5mg BID thereafter for 90 days Prescribed by: SUNDAR WHITESIDE MD on 04/05/19 6827 Last Action: Continued on 10/11/191539 by SUNDAR WHITESIDE MD Aspirin (Aspirin) 325 Mg Tablet, 1 TAB PO DAILY for heart, #30 Ref 5 (Reported) Entered as Reported by: Manuel Natarajan on 04/02/192138 Last Action: Continued on 10/11/191539 by SUNDAR WHITESIDE MD Atorvastatin Calcium (Atorvastatin Calcium) 20 Mg Tablet, 20 MG PO QHS for cholesterol for 30 Days, #30 Ref 2 Prescribed by: JYOTI ARTHUR APRN on 10/13/19 1405 Cholecalciferol (Vitamin D3) (Vitamin D3) 2,000 Unit Tablet, 1 TAB PO DAILY for vitamin for 30 Days, #30 Ref 0 (Reported) Entered as Reported by: Manuel Natarajan on 04/02/192138 Last Action: Converted on 10/11/191539 by SUNDAR WHITSEIDE MD Lisinopril (Lisinopril) 5 Mg Tablet, 1 TAB PO DAILY for blood pressure, #30 Ref 5 (Reported) Entered as Reported by: Manuel Natarajan on 04/02/192138 Metoprolol Tartrate (Metoprolol Tartrate) 25 Mg Tablet, 12.5 MG PO BID for heart rate for 30 Days, #30 Ref 2 Prescribed by: JYOTI ARTHUR APRN on 10/13/19 1405 Multivits-Min/Iron/FA/Lutein (Centrum Silver Women Tablet) 1 Each Tablet, 1 EACH PO DAILY for vitamin, (Reported) Entered as Reported by: Manuel Natarajan on 04/02/192138 Omeprazole (Omeprazole) 40 Mg Capsule.dr, 1 CAP PO DAILY for acid reflux, #30 Ref 3 (Reported) Entered as Reported by: Manuel Natarajan on 04/02/192138 Last Action: Converted on 10/11/191539 by SUNDAR WHITESIDE MD Prednisone (Prednisone) 20 Mg Tablet, 1 TAB PO BID for copd exac for 7 Days, #14 Prescribed by: HARRY BYERS MD on 10/13/19 1153 Scheduled PRN Cyclobenzaprine Hcl (Cyclobenzaprine Hcl) 5 Mg Tablet, 1 TAB PO TID PRN for MUSCLE SPASMS, #30 (Reported) Entered as Reported by: HORACE AREVALO on 10/11/192116 Last Action: New Order on 10/11/192116 by HORACE AREVALO Oxycodone/Apap 10-325 (Percocet 10-325 Mg Tablet ) 1 Each Tablet, 1 TAB PO PRN QID PRN for SEVERE PAIN 7-10, (Reported) Entered as Reported by: GISSEL MCCOY on 06/17/131847 Last Action: Continued on 10/12/192237 by MAXIMILIANO ROSADO Warfarin Sodium (Coumadin) 10 Mg Tablet, 6 MG PO DAILY PRN for PE for 30 Days, #18 Ref 2 Prescribed by: SUNDAR WHITESIDE MD on 04/05/19 1457 Discontinued Medications Meloxicam (Mobic) 15 Mg Tablet, 15 MG PO DAILY, (Reported) Entered as Reported by: GISSEL MCCOY on 06/17/131848 Last Action: Discontinued on 10/11/192116 by HORACE AREVALO Justicifation of Admission Dx: Justifications for Admission: Justification of Admission Dx: Yes Acute COPD Exacerbation: Acute COPD Exacerbation HARRY BYERS MD Oct 13, 2019 14:14
== END 2019-10-13 14:15 | disposition home or self-care (01) | DRG 202 ==
LOC: ER 10:57 → ED HOLD 13:40 → 6 SOUTH 16:28
PROVIDERS: ADMIT Internal Medicine; ATTEND Internal Medicine
DX: J20.9 Acute bronchitis, unspecified (principal); J44.1 Chronic obstructive pulmonary disease with (acute) exacerbation; J44.0 Chronic obstructive pulmonary disease with (acute) lower respiratory infection; R07.89 Other chest pain; K44.9 Diaphragmatic hernia without obstruction or gangrene; K21.9 Gastro-esophageal reflux disease without esophagitis; D35.02 Benign neoplasm of left adrenal gland; E27.8 Other specified disorders of adrenal gland; E78.5 Hyperlipidemia, unspecified; F17.210 Nicotine dependence, cigarettes, uncomplicated; I10 Essential (primary) hypertension; I25.2 Old myocardial infarction; J31.0 Chronic rhinitis; Z79.01 Long term (current) use of anticoagulants; J84.10 Pulmonary fibrosis, unspecified; Z79.82 Long term (current) use of aspirin; Z79.899 Other long term (current) drug therapy; Z82.49 Family history of ischemic heart disease and other diseases of the circulatory system; Z83.3 Family history of diabetes mellitus; Z86.711 Personal history of pulmonary embolism; Z90.710 Acquired absence of both cervix and uterus; Z96.659 Presence of unspecified artificial knee joint; G89.29 Other chronic pain; M19.90 Unspecified osteoarthritis, unspecified site; Z20.828 Contact with and (suspected) exposure to other viral communicable diseases; Z71.6 Tobacco abuse counseling
CPT/HCPCS: 36415; 36600; 71045; 71275; 80053; 80061; 80307; 81001; 82805; 83880; 84443; 84484; 85025; 85610; 87086; 93005; 96374; 99285; J2920; J2930; J7040; Q9967; G0378; U0003-CS

== ENCOUNTER → 2019-11-03 | Outpatient (CLI) | payer MEDICARE ==
[2019-10-13 11:00] VITALS: BP 127/71
[~2019-11-03] MED LIST changes: +ATOR20TA58 PO; +CYCL5TAB PO; +METO25TA4 PO; +PRED20TA PO; +REGADENOSON 0.4 MG/5 ML DISP.SYRIN. IV ONE
--- NOTE | 2019-11-03 13:00 | RAD ---
MR#: [id number] Date of Study: 11/03/2019 Ordering Physician: BLAS CAI, Referring Physician: SAMIRA JARRELL Tech: RT Florentino (R) (N) APPROVED REPORT Test Type: Pharmacological Stress Nurse/Tech: Reji Hernandez RN Test Indications: Chest Pain Cardiac History: HTN, increased cholesterol, See EMR Medications: Eliquis, See EMR Medical History: Smoker, See EMR Resting ECG: SR Resting Heart Rate: 68 bpm Resting Blood Pressure: 136/65mmHg Pretest Chest Pain: No chest pain Nurse/Tech Notes Lungs diminshed in bases and coarse in the upper lobes, Heart tones regular. Pharm. Details Pharmacologic stress testing was performed using 0.4mg per 5ml of regadenoson given intravenously ove r 7-10 seconds. Stress Symptoms Dyspnea POST EXERCISE Reason for Termination: Infusion complete Max HR: 98 bpm Max Blood Pressure: 117/64mmHg Blood Pressure response to exercise: Normal blood pressure response during stress. Heart Rate response to exercise: WNL Chest Pain: No. Arrhythmia: No. ST Change: No. INTERPRETATION Stress EKG Conclusion: Baseline EKG showed sinus rhythm. No ischemic changes at peak stress. No arr hythmias. Imaging Protocol IMAGE PROTOCOL: Rest Tc-99m/stress Tc-99m 1 day Rest: Stress: Viability: Radiopharm.Tc99m [id number] Sestamibi Dose10.6mCi 32.7mCi Duration 15min. 10min. Img Date 11/03/2019 11/03/2019 Inj-Img [id number]. 60min. Rest Admin Site:IV - Right AntecubitalAdministrator:RT Florentino (R)(N) Stress Admin Site: IV - Right AntecubitalAdministrator: RT Florentino (Jaiden)(N) STRESS DATA End Diast. Vol.44.0mlAv. Heart Rate93.0bpm End Syst. Vol.8.0mlCO Index BSA3.3L/min Myocardial Mass89.0gEject. Glsslqzq07.0% Stress Rates Pk. Fill Rate4.82EDV/secLVtime Pk. Fill 197.76msec Pk. Empty Rate6.43ESV/secLVtime Pk. Hmzaw400.00msec 1/3 Pk. Fill0.27EDV/sec Stress Scores Regional WT0.00Summed WT0.00 Regional WM0.00Summed WM2.00 Study quality was good. Left Ventricular size was Normal at Rest and Stress. Lung uptake was . Left Ventricular ejection fraction is 79%. The rest and stress images show normal perfusion, normal contraction and thickening. LV Perf. Quant 17 Seg. SSS0.00 17 Seg. SRS4.00 17 Seg. SDS0.00 Stress Defect Extent (% LAD)0.00Rest Defect Extent (% LAD)0.00Rev. Defect Extent (% LAD)0.00 Stress Defect Extent (% LCX) 0.00Rest Defect Extent (% LCX)37.50Rev. Defect Extent (% LCX)0.00 Stress Defect Extent (% RCA)0.00Rest Defect Extent (% RCA)0.00Rev. Defect Extent (% RCA)0.00 Stress Defect Extent (% MO)0.00Rest Defect Extent (% MO)8.00Rev. Defect Extent (% MO)0.00 Conclusion 1. Regadenoson cardioisotope stress test did not show any evidence of ischemia or infarct. 2. Normal left ventricular systolic function with ejection fraction calculated at 79%. 3. Low risk for cardiac events. Signed by : Low Dennis, Electronically Approved : 11/03/2019 12:59:35
== END | disposition home or self-care (01) ==
LOC: NM 11-02 14:52
PROVIDERS: ATTEND Internal Medicine Cardiovascular Disease
DX: I10 Essential (primary) hypertension (principal); R07.9 Chest pain, unspecified; F17.200 Nicotine dependence, unspecified, uncomplicated
CPT/HCPCS: 78452; 93017; A9500; J2785

== ENCOUNTER 2020-04-28 17:03 | Inpatient (IN) | payer MEDICARE ==
[~2020-04-28] VITALS: Ht 157.5 cm; Wt 80.3 kg
[~2020-04-28 17:03] MED LIST changes: -LISI-338 PO; +LISI-517 PO; -OMEP40CA45 PO; +OMEP40CA7 PO; -REGADENOSON 0.4 MG/5 ML DISP.SYRIN. IV ONE
[2020-04-28 17:47] LABS: BASO # 0.1 x10^3/uL (0.0-0.2); BASO % 1 % (0-3); EOS # 0.4 x10^3/uL (0.0-0.7); EOS % 4 % (0-3); HEMATOCRIT 43.8 % (36.0-47.0); HEMOGLOBIN 14.3 g/dL (12.0-15.5); LYMPH # 2.8 x10^3/uL (1.0-4.8); LYMPH % 27 % (24-48); MEAN CORPUSCULAR HEMOGLOBIN 29 pg (25-35); MEAN CORPUSCULAR HGB CONC 33 g/dL (31-37); MEAN CORPUSCULAR VOLUME 89 fL (79-100); MONO # 0.8 x10^3/uL (0.0-1.1); MONO % 8 % (0-9); NEUT # 6.2 x10^3/uL (1.8-7.7); NEUT % 60 % (31-73); PLATELET COUNT 286 x10^3/uL (140-400); RED BLOOD COUNT 4.95 x10^6/uL (3.50-5.40); RED CELL DISTRIBUTION WIDTH 13.5 % (11.5-14.5); WHITE BLOOD COUNT 10.2 x10^3/uL (4.0-11.0)
--- NOTE | 2020-04-28 17:48 | PHYS DOC ---
Past Medical History Past Medical History: GERD, Hypertension, Other Additional Past Medical Histor: chronic knee pain,PE Past Surgical History: Knee Replacement, Other Additional Past Surgical Histo: L bunion Smoking Status: Former Smoker Additional Information: QUIT 1 WK AGO. Alcohol Use: None Drug Use: None General Adult EDM: Chief Complaint: SHORTNESS OF BREATH HPI: HPI: 64-year-old female presenting the [facility] today with chest pain and shortness of breath. Her chest pain started 2 days ago is exertional. She feels lightheaded when she walks too fast. She describes the pain in her chest as a heaviness in the left side that comes and goes. No alleviating exacerbating factors. She has a history of hypertension she has a history of hyperlipidemia and she has a family history of heart disease. She does not have a history of diabetes. She does have a history of PE. She denies unilateral leg swelling or hemoptysis. She is no longer on the blood thinner that she was on earlier. Review of systems negative for unilateral leg swelling hemoptysis. She denies abdominal pain vomiting diaphoresis fevers or chills. She denies cough or recent Covid exposure. All other review of systems negative. ED course: 64-year-old female presenting with chest pain and shortness of breath. On arrival she is mildly tachycardic with a history of PE. EKG ordered and obtained and reviewed by myself shows sinus tachycardia. ST segments are congruent. Not suggestive of acute ischemia. Blood work ordered along with chest x-ray and CT angiogram to evaluate for pulmonary embolism. CT angiography shows extensive bilateral pulmonary emboli with right heart strain. CBC unremarkable. Chemistry panel shows a positive troponin of 0.14 with a proBNP of 5143. I placed the patient on a heparin drip with a heparin bolus. I spoke with Dr. Darby our hospitalist who accepts the patient for admission to the [facility]. I also spoke to the interventional radiologist about the possibility for thrombolytics or directed thrombolytics or thrombectomy. In the interim we will order ultrasound of the lower extremities bilaterally for the possibility of placing a filter. The patient was then admitted to the [facility] for further treatment and care. Dr. Darby will follow up on lower extremity ultrasounds. Heart Score: HEART Score for Chest Pain: HEART Score for Chest Pain Response (Comments) Value History Moderately Suspicious 1 ECG Nonspecific Repolarizatio 1 Age >45 - < 65 1 Risk Factors >3 Risk Factors or Hx CAD 2 Troponin < Normal Limit 0 Total 5 Risk Factors: Risk Factors: DM, Current or recent (<one month) smoker, HTN, HLP, family history of CAD, obesity. Risk Scores: Score 0 - 3: 2.5% MACE over next 6 weeks - Discharge Home Score 4 - 6: 20.3% MACE over next 6 weeks - Admit for Clinical Observation Score 7 - 10: 72.7% MACE over next 6 weeks - Early Invasive Strategies Allergies: Allergies: Allergies Coded Allergies Type Severity Reaction Last Updated Verified No Known Drug Allergies 06/17/13 No Physical Exam: PE: Constitutional: Well developed, well nourished, no acute distress, non-toxic appearance. [] Breathing comfortably in the examination room. HENT: Normocephalic, atraumatic, bilateral external ears normal, oropharynx moist, no oral exudates, nose normal. [] Eyes: PERRLA, EOMI, conjunctiva normal, no discharge. [] Neck: Normal range of motion, no tenderness, supple, no stridor. [] Cardiovascular: Regular rhythm with a tachycardic rate. No murmur. Lungs & Thorax: Bilateral breath sounds clear to auscultation [] Abdomen: Bowel sounds normal, soft, no tenderness, no masses, no pulsatile masses. [] Skin: Warm, dry, no erythema, no rash. [] Back: No tenderness, no CVA tenderness. [] Extremities: No tenderness, no cyanosis, no clubbing, ROM intact, no edema. [] No pain with passive range of motion of the calf. No signs of DVT. Nontender along the venous system of the legs. Neurologic: Alert and oriented X 3, normal motor function, normal sensory function, no focal deficits noted. [] Psychologic: Affect normal, judgement normal, mood normal. [] Current Patient Data: Vital Signs: Vital Signs Date Time Temp Pulse Resp B/P (MAP) Pulse Ox O2 Delivery O2 Flow Rate FiO2 04/28/20 17:10 98.0 116 20 108/78 (88) 99 Room Air 98.0 EKG: EKG: [] Radiology/Procedures: Radiology/Procedures: [] Course & Med Decision Making: Course & Med Decision Making Pertinent Labs and Imaging studies reviewed. (See chart for details) [] Dragon Disclaimer: Dragon Disclaimer: This electronic medical record was generated, in whole or in part, using a voice recognition dictation system. Departure Departure Impression: Primary Impression: Chest pain Additional Impressions: Shortness of breath NSTEMI (non-ST elevated myocardial infarction) Pulmonary embolism Disposition: 09 ADMITTED INPT THIS HOSP Condition: STABLE Referrals: WARD ROSS (PCP) LAZ VALENTINO MD Apr 28, 2020 17:48
[2020-04-28 17:54] LABS: CALCIUM 8.5 mg/dL (8.5-10.1); CREATININE 0.9 mg/dL (0.6-1.0); GFR 63.2; POTASSIUM 3.3 mmol/L (3.5-5.1)
[2020-04-28 17:55] LABS: PROTHROMBIN TIME PATIENT 12.9 SEC (11.7-14.0)
[2020-04-28 18:02] LABS: DIRECT BILIRUBIN 0.1 mg/dL (0.0-0.2); TOTAL BILIRUBIN 0.4 mg/dL (0.2-1.0); TOTAL PROTEIN 6.6 g/dL (6.4-8.2)
[2020-04-28] MEDS ORDERED: CONTRAST GIVEN. MC PRN (18:15)
[2020-04-28] MEDS ORDERED: IOHEXOL 350 MG/ML 100 ML VIAL. IV ONE (18:15)
--- NOTE | 2020-04-28 18:28 | RAD ---
XR CHEST 1V Clinical History: Reason: chest pain / Spl. Instructions: / History: Technique: AP view of the chest was obtained at 04/28/2020 6:15 PM. Comparison: October 11, 2019. Findings: The cardiomediastinal silhouette is normal. The pulmonary vasculature is normal. The lungs and pleura l margins are clear. There is a left-sided calcified granuloma. There is a moderate size hiatal herni a. Impression: No evidence of an acute cardiopulmonary process. Electronically signed by: Mikhail De Souza III, MD (04/28/2020 6:25 PM) [facility]
[2020-04-28] MEDS ORDERED: HEPARIN 25,000UTS/250ML PREMIX 250 ML IV PRN (18:45)
[2020-04-28] MEDS ORDERED: HEPARIN for IV BOLUS 10,000 UNIT/10 ML VIAL. IV PRN ×2 (18:45)
--- NOTE | 2020-04-28 18:55 | RAD ---
EXAMINATION: CTA CHEST CLINICAL HISTORY: Shortness of breath concerning for PE Technique: Spiral CT acquisition of the chest from the thoracic inlet to the upper abdomen following IV contrast with coronal and sagittal reformatted images also provided for review. CT Dose Reduction Employed: One or more of the following individualized dose reduction techniques wer e utilized for this examination: 1. Automated exposure control 2. Adjustment of the mA and/or kV ac cording to patient size 3. Use of iterative reconstruction technique. Comparison: Chest radiograph same day, CTA chest 10/11/2019 FINDINGS: Limitations: None. Lines, Tubes, and Devices: None. Pulmonary Vasculature: Arterial thrombus present in the bilateral main, lobar, and multiple segmental branches involving all lobes of the lungs. Mildly dilated main pulmonary artery measuring up to 3.1 cm in diameter, suggestive of pulmonary hypertension. Lung Parenchyma, Pleura, and Airways: No focal consolidation. No suspicious pulmonary nodule. No pleu ral effusion. Central airways patent. Lower Neck, Lymph Nodes, and Mediastinum: Visualized thyroid gland within normal limits. No mediastin al, hilar, or axillary lymphadenopathy. Heart, Pericardium, and Thoracic Vessels: Mild right heart strain with asymmetrically enlarged right ventricle. No pericardial effusion. Aortic atherosclerotic calcification without aneurysm. No coronar y artery atherosclerotic calcifications are noted, although the study is not optimized for coronary a ssessment. Bones and Soft Tissues: Multilevel degenerative changes of the thoracic spine. Upper Abdomen: Moderate hiatal hernia. Cholecystectomy. 1.7 cm hypodense left adrenal lesion with ecc entric calcification, similar on prior study. IMPRESSION: Extensive bilateral pulmonary emboli with right heart strain and findings suggestive of pulmonary hyp ertension. Critical findings discussed with LAZ VALENTINO MD at 04/28/2020 6:39 PM. Electronically signed by: Linden Rogel DO (04/28/2020 6:53 PM) [facility]
[2020-04-28] MEDS ORDERED: HEPARIN for IV BOLUS 10,000 UNIT/10 ML VIAL. IV ONE (19:15)
--- NOTE | 2020-04-28 20:57 | RAD ---
Bilateral Lower Extremity Venous Doppler Ultrasound History: Reason: pe, r/o dvt. / Spl. Instructions: / History: Comparison: None Procedure: Color flow, duplex, spectral analysis and 2D images are obtained with and without compress ion in the area of the common femoral vein, superficial femoral vein - femoral vein junction, main fe moral vein (superficial femoral vein) and popliteal vein. Veins of the proximal calf are also imaged. Findings: There is normal duplex flow, color flow and compressibility of all visualized vein segments. No evide nce of deep venous thrombus is present. Impression: No evidence of DVT. Electronically signed by: Mikhail De Souza III, MD (04/28/2020 8:53 PM) [facility]
[2020-04-28 21:10] VITALS: BP 139/75
[2020-04-28] MEDS ORDERED: guaiFENesin ORAL 200 MG/10 ML LIQUID. PO PRN (21:30)
[2020-04-28] MEDS ORDERED: ACETAMINOPHEN 325 MG TABLET. PO PRN (21:30)
[2020-04-28] MEDS ORDERED: DOCUSATE SODIUM 100 MG CAPSULE. PO PRN (21:30)
[2020-04-28] MEDS ORDERED: traMADol 50 MG TABLET PO PRN (21:30)
[2020-04-28] MEDS ORDERED: MORPHINE SULFATE 2 MG/ML VIAL. IVP PRN (21:30)
[2020-04-28] MEDS ORDERED: ZOLPIDEM 5 MG TABLET. PO PRN (21:30)
[2020-04-28] MEDS ORDERED: ONDANSETRON PF 4 MG/2 ML VIAL. IV PRN (21:30)
[2020-04-28] MEDS ORDERED: APIXABAN 5 MG TABLET. PO SCH (21:45)
[2020-04-28] MEDS ORDERED: CYCLOBENZAPRINE 10 MG TABLET. PO PRN (21:45)
[2020-04-28] MEDS ORDERED: MELO15TA23 PO (21:53)
[2020-04-28] MEDS ORDERED: BUDE10.2 IH (21:53)
[2020-04-28] MEDS ORDERED: MELA10CA PO (21:54)
[2020-04-28] MEDS: ATORVASTATIN CALCIUM 20 MG TABLET PO SCH (22:08)
[2020-04-28] MEDS: METOPROLOL TART IMMED RELEASE 25 MG TABLET. PO SCH (22:09)
--- NOTE | 2020-04-28 22:49 | NUR ---
PT ARRIVED TO UNIT PER [facility] AT 2105, PT ASSISTED TO RESTROOM WITH STANDBY ASSIST, VSS OBTAINED AND STABLE TELE MONITOR APPLIED TO PT. POC EXPLAINED TO PT ASSESSMENT COMPLETED WILL RESUME CARE AND CONTINUE TO MONITOR PT.CALL LIGHT IN REACH.
[2020-04-28 23:24] VITALS: BP 137/77
[2020-04-29 02:57] VITALS: BP 133/90
[2020-04-29] MEDS ORDERED: HEPARIN 25,000UTS/250ML PREMIX 250 ML IV PRN (03:15)
[2020-04-29 05:29] LABS: CALCIUM 8.8 mg/dL (8.5-10.1); CREATININE 0.8 mg/dL (0.6-1.0); GFR 72.4; POTASSIUM 3.7 mmol/L (3.5-5.1)
[2020-04-29] MEDS: PANTOPRAZOLE 40 MG TABLET.DR. PO SCH (06:19)
[2020-04-29 06:57] VITALS: BP 108/73
[2020-04-29] MEDS: MULTIVITAMIN with MINERAL TABLET. PO SCH (08:47)
[2020-04-29] MEDS: LISINOPRIL 5 MG TABLET. PO SCH (08:48)
[2020-04-29] MEDS: CHOLECALCIFEROL (VITAMIN D3) 1,000 UNIT TABLET PO SCH (08:48)
[2020-04-29] MEDS: ASPIRIN 325 MG TABLET PO SCH (08:48)
[2020-04-29] MEDS: METOPROLOL TART IMMED RELEASE 25 MG TABLET. PO SCH ×2 (08:49→20:55)
--- NOTE | 2020-04-29 08:55 | PDOC1 ---
History and Physical Date of Admission Date of Admission DATE: 04/29/20 TIME: 08:28 Identification/Chief Complaint Chief Complaint Chest pain, shortness of breath Source Source: Chart review, Patient History of Present Illness History of Present Illness Patient 64-year-old female with past medical history PE, who presents to the ER with complaints of chest pain for the past 2 days and dyspnea on exertion. She also reports associated lightheadedness and fatigue. She was previously on Eliquis and I believe she was told to stop this medication at some point. Upon evaluation in the ED, CT angiography shows extensive bilateral pulmonary emboli with right heart strain. EKG with no suggestions of acute ischemia. She denies any unilateral leg swelling or hemoptysis. Patient was placed on heparin drip in the ER and admitted for further medical management. Past Medical History Cardiovascular: HTN Pulmonary: Pulmonary embolus GI: GERD Heme/Onc: No pertinent hx Hepatobiliary: No pertinent hx Psych: No pertinent hx Musculoskeletal: Osteoarthritis Rheumatologic: No pertinent hx Infectious disease: No pertinent hx Renal/: No pertinent hx Endocrine: No pertinent hx Past Surgical History Past Surgical History: Hysterectomy Family History Family History: Diabetes, Hypertension Social History Smoke: Quit ALCOHOL: occassional Drugs: None Current Problem List Problem List Problems Medical Problems: (1) Chest pain Status: Acute (2) Pulmonary embolism Status: Acute (3) Shortness of breath Status: Acute Current Medications Current Medications Current Medications Iohexol (Omnipaque 350 Mg/ml) 100 ml 1X ONCE IV Last administered on 04/28/20at 18:28; Start 04/28/20 at 18:15; Stop 04/28/20 at 18:16; Status DC Info (CONTRAST GIVEN -- Rx MONITORING) 1 each PRN DAILY PRN MC SEE COMMENTS; Start 04/28/20 at 18:15; Stop 04/30/20 at 18:14 Heparin Sodium/ Dextrose 250 ml @ 0 mls/hr CONT PRN IV PER PROTOCOL Last administered on 04/28/20at 19:18; Start 04/28/20 at 18:45; Stop 04/29/20 at 03:10; Status DC Heparin Sodium (Porcine) (Heparin Sodium) 2,550 unit PRN Q6HRS PRN IV FOR UFH LEVEL LESS THAN 0.2; Start 04/28/20 at 18:45 Heparin Sodium (Porcine) (Heparin Sodium) 1,250 unit PRN Q6HRS PRN IV FOR UFH LEVEL 0.2 - 0.29; Start 04/28/20 at 18:45 Heparin Sodium (Porcine) (Heparin Sodium) 6,750 unit 1X ONCE IV Last administered on 04/28/20at 19:14; Start 04/28/20 at 19:15; Stop 04/28/20 at 19:16; Status DC Apixaban (Eliquis) 10 mg BID PO Last administered on 04/28/20at 22:08; Start 04/28/20 at 21:45; Stop 04/29/20 at 08:26; Status DC Aspirin (Priscilla Aspirin) 325 mg DAILYWBKFT PO ; Start 04/29/20 at 08:00 Atorvastatin Calcium (Lipitor) 20 mg QHS PO Last administered on 04/28/20at 22:08; Start 04/28/20 at 21:45 Lisinopril (Prinivil) 5 mg DAILY PO ; Start 04/29/20 at 09:00 Metoprolol Tartrate (Lopressor) 12.5 mg BID PO Last administered on 04/28/20at 22:09; Start 04/28/20 at 21:45 Vitamin D (Vitamin D3) 2,000 unit DAILY PO ; Start 04/29/20 at 09:00 Cyclobenzaprine HCl (Flexeril) 5 mg PRN TID PRN PO MUSCLE SPASMS; Start 04/28/20 at 21:45 Multivitamins (Thera M Plus) 1 tab DAILY PO ; Start 04/29/20 at 09:00 Pantoprazole Sodium (Protonix) 40 mg DAILYAC PO Last administered on 04/29/20at 06:19; Start 04/29/20 at 07:30 Ondansetron HCl (Zofran) 4 mg PRN Q4HRS PRN IV NAUSEA/VOMITING; Start 04/28/20 at 21:30 Zolpidem Tartrate (Ambien) 5 mg PRN QHS PRN PO INSOMNIA; Start 04/28/20 at 21:30 Acetaminophen (Tylenol) 650 mg PRN Q4HRS PRN PO TEMP OVER 100.4F OR MILD PAIN; Start 04/28/20 at 21:30 Docusate Sodium (Colace) 100 mg PRN BID PRN PO HARD STOOLS; Start 04/28/20 at 21:30 Guaifenesin (Robitussin) 200 mg PRN Q4HRS PRN PO COUGH; Start 04/28/20 at 21:30 Morphine Sulfate (Morphine Sulfate) 2 mg PRN Q1HR PRN IVP UNRESOLVED PAIN, 1st CHOICE; Start 04/28/20 at 21:30 Tramadol HCl (Ultram) 50 mg PRN Q6HRS PRN PO PAIN; Start 04/28/20 at 21:30 Heparin Sodium/ Dextrose 250 ml @ 0 mls/hr CONT PRN IV PER PROTOCOL; Start 04/29/20 at 03:15 Apixaban (Eliquis) 10 mg BID PO ; Start 04/29/20 at 21:00; Stop 05/06/20 at 09:01 Active Scripts Active Atorvastatin Calcium 20 Mg Tablet 20 Mg PO QHS 30 Days Metoprolol Tartrate 25 Mg Tablet 12.5 Mg PO BID 30 Days Prednisone 20 Mg Tablet 1 Tab PO BID 7 Days Coumadin (Warfarin Sodium) 10 Mg Tablet 6 Mg PO DAILY PRN 30 Days Eliquis (Apixaban) 5 Mg Tablet 5 Mg PO BID 30 Days 10mg BID for 7 days, then 5mg BID thereafter for 90 days Reported Melatonin 10 Mg Capsule 1 Cap PO QHS 30 Days Meloxicam 15 Mg Tablet 15 Mg PO HS Symbicort 160-4.5 Mcg Inhaler (Budesonide/Formoterol Fumarate) 10.2 Gm Hfa.aer.ad 2 Puff IH BID Cyclobenzaprine Hcl 5 Mg Tablet 1 Tab PO TID PRN Lisinopril 5 Mg Tablet 1 Tab PO DAILY Omeprazole 40 Mg Capsule.dr 1 Cap PO DAILY Vitamin D3 (Cholecalciferol (Vitamin D3)) 2,000 Unit Tablet 1 Tab PO QTH 30 Days Centrum Silver Women Tablet (Multivits-Min/Iron/FA/Lutein) 1 Each Tablet 1 Each PO DAILY Aspirin 325 Mg Tablet 1 Tab PO DAILY Percocet 10-325 Mg Tablet (Oxycodone/Acetaminophen) 1 Each Tablet 1 Tab PO PRN QID PRN Allergies Allergies: Coded Allergies: No Known Drug Allergies (Unverified , 06/17/13) ROS Review of System GENERAL: No history of weight change, weakness or fevers. SKIN: No bruising, hair changes or rashes. EYES: No blurred, double or loss of vision. NOSE AND THROAT: No history of nosebleeds, hoarseness or sore throat. HEART: Chest pain. Denies palpitations, denies hemoptysis. LUNGS: Exertional dyspnea. Denies cough, hemoptysis, wheezing. GASTROINTESTINAL: Denies nausea, vomiting, abdominal pain. GENITOURINARY: Denies dysuria, frequency, urgency, hematuria. NEUROLOGIC: Denies history of numbness, tingling, tremor or weakness. PSYCHIATRIC: Denies anxiety, denies depression. ENDOCRINE: No history of heat or cold intolerance, polyuria or polydipsia. EXTREMITIES: Denies muscle weakness, joint pain, pain on walking or stiffness. Physical Exam Physical Exam General: Alert, Oriented X3, Cooperative, mild distress HEENT: PERRLA, EOMI Lungs: Clear to auscultation, Normal air movement Heart: RRR, no murmurs Cardiovascular: S1, S2 Abdomen: Normal bowel sounds, Soft, No tenderness Extremities: No clubbing, No cyanosis Skin: No rashes, No significant lesion Neuro: Normal speech, Normal tone, Sensation intact Psych/Mental Status: Mental status NL, Mood NL Vitals Vitals Vital Signs Date Time Temp Pulse Resp B/P (MAP) Pulse Ox O2 Delivery O2 Flow Rate FiO2 04/29/20 06:57 96.8 99 20 108/73 (85) 99 Nasal Cannula 1.0 96.8 Labs Labs Laboratory Tests Test 04/28/20 17:35 04/29/20 01:45 04/29/20 02:00 04/29/20 07:10 White Blood Count 10.2 x10^3/uL (4.0-11.0) Red Blood Count 4.95 x10^6/uL (3.50-5.40) Hemoglobin 14.3 g/dL (12.0-15.5) Hematocrit 43.8 % (36.0-47.0) Mean Corpuscular Volume 89 fL (79-100) Mean Corpuscular Hemoglobin 29 pg (25-35) Mean Corpuscular Hemoglobin Concent 33 g/dL (31-37) Red Cell Distribution Width 13.5 % (11.5-14.5) Platelet Count 286 x10^3/uL (140-400) Neutrophils (%) (Auto) 60 % (31-73) Lymphocytes (%) (Auto) 27 % (24-48) Monocytes (%) (Auto) 8 % (0-9) Eosinophils (%) (Auto) 4 % (0-3) Basophils (%) (Auto) 1 % (0-3) Neutrophils # (Auto) 6.2 x10^3/uL (1.8-7.7) Lymphocytes # (Auto) 2.8 x10^3/uL (1.0-4.8) Monocytes # (Auto) 0.8 x10^3/uL (0.0-1.1) Eosinophils # (Auto) 0.4 x10^3/uL (0.0-0.7) Basophils # (Auto) 0.1 x10^3/uL (0.0-0.2) Prothrombin Time 12.9 SEC (11.7-14.0) Prothromb Time International Ratio 1.0 (0.8-1.1) Activated Partial Thromboplast Time 31 SEC (24-38) > 150 SEC (24-38) Sodium Level 142 mmol/L (136-145) 144 mmol/L (136-145) Potassium Level 3.3 mmol/L (3.5-5.1) 3.7 mmol/L (3.5-5.1) Chloride Level 106 mmol/L (98-107) 107 mmol/L (98-107) Carbon Dioxide Level 25 mmol/L (21-32) 25 mmol/L (21-32) Anion Gap 11 (6-14) 12 (6-14) Blood Urea Nitrogen 21 mg/dL (7-20) 19 mg/dL (7-20) Creatinine 0.9 mg/dL (0.6-1.0) 0.8 mg/dL (0.6-1.0) Estimated GFR (Cockcroft-Gault) 63.2 72.4 Glucose Level 151 mg/dL (70-99) 125 mg/dL (70-99) Calcium Level 8.5 mg/dL (8.5-10.1) 8.8 mg/dL (8.5-10.1) Total Bilirubin 0.4 mg/dL (0.2-1.0) Direct Bilirubin 0.1 mg/dL (0.0-0.2) Aspartate Amino Transf (AST/SGOT) 23 U/L (15-37) Alanine Aminotransferase (ALT/SGPT) 33 U/L (14-59) Alkaline Phosphatase 125 U/L (46-116) Troponin I Quantitative 0.140 ng/mL (0.000-0.055) 0.177 ng/mL (0.000-0.055) 0.134 ng/mL (0.000-0.055) FS-Aqv-O-Type Natriuretic Peptide 5143 pg/mL (0-124) Total Protein 6.6 g/dL (6.4-8.2) Albumin 3.0 g/dL (3.4-5.0) Lipase 105 U/L (73-393) Thyroid Stimulating Hormone (TSH) 1.959 uIU/mL (0.358-3.74) Laboratory Tests Test 04/28/20 17:35 04/29/20 01:45 04/29/20 02:00 04/29/20 07:10 White Blood Count 10.2 x10^3/uL (4.0-11.0) Red Blood Count 4.95 x10^6/uL (3.50-5.40) Hemoglobin 14.3 g/dL (12.0-15.5) Hematocrit 43.8 % (36.0-47.0) Mean Corpuscular Volume 89 fL (79-100) Mean Corpuscular Hemoglobin 29 pg (25-35) Mean Corpuscular Hemoglobin Concent 33 g/dL (31-37) Red Cell Distribution Width 13.5 % (11.5-14.5) Platelet Count 286 x10^3/uL (140-400) Neutrophils (%) (Auto) 60 % (31-73) Lymphocytes (%) (Auto) 27 % (24-48) Monocytes (%) (Auto) 8 % (0-9) Eosinophils (%) (Auto) 4 % (0-3) Basophils (%) (Auto) 1 % (0-3) Neutrophils # (Auto) 6.2 x10^3/uL (1.8-7.7) Lymphocytes # (Auto) 2.8 x10^3/uL (1.0-4.8) Monocytes # (Auto) 0.8 x10^3/uL (0.0-1.1) Eosinophils # (Auto) 0.4 x10^3/uL (0.0-0.7) Basophils # (Auto) 0.1 x10^3/uL (0.0-0.2) Prothrombin Time 12.9 SEC (11.7-14.0) Prothromb Time International Ratio 1.0 (0.8-1.1) Activated Partial Thromboplast Time 31 SEC (24-38) > 150 SEC (24-38) Sodium Level 142 mmol/L (136-145) 144 mmol/L (136-145) Potassium Level 3.3 mmol/L (3.5-5.1) 3.7 mmol/L (3.5-5.1) Chloride Level 106 mmol/L (98-107) 107 mmol/L (98-107) Carbon Dioxide Level 25 mmol/L (21-32) 25 mmol/L (21-32) Anion Gap 11 (6-14) 12 (6-14) Blood Urea Nitrogen 21 mg/dL (7-20) 19 mg/dL (7-20) Creatinine 0.9 mg/dL (0.6-1.0) 0.8 mg/dL (0.6-1.0) Estimated GFR (Cockcroft-Gault) 63.2 72.4 Glucose Level 151 mg/dL (70-99) 125 mg/dL (70-99) Calcium Level 8.5 mg/dL (8.5-10.1) 8.8 mg/dL (8.5-10.1) Total Bilirubin 0.4 mg/dL (0.2-1.0) Direct Bilirubin 0.1 mg/dL (0.0-0.2) Aspartate Amino Transf (AST/SGOT) 23 U/L (15-37) Alanine Aminotransferase (ALT/SGPT) 33 U/L (14-59) Alkaline Phosphatase 125 U/L (46-116) Troponin I Quantitative 0.140 ng/mL (0.000-0.055) 0.177 ng/mL (0.000-0.055) 0.134 ng/mL (0.000-0.055) PC-Rxf-S-Type Natriuretic Peptide 5143 pg/mL (0-124) Total Protein 6.6 g/dL (6.4-8.2) Albumin 3.0 g/dL (3.4-5.0) Lipase 105 U/L (73-393) Thyroid Stimulating Hormone (TSH) 1.959 uIU/mL (0.358-3.74) Images Images EXAMINATION: CTA CHEST CLINICAL HISTORY: Shortness of breath concerning for PE Technique: Spiral CT acquisition of the chest from the thoracic inlet to the upper abdomen following IV contrast with coronal and sagittal reformatted images also provided for review. CT Dose Reduction Employed: One or more of the following individualized dose reduction techniques were utilized for this examination: 1. Automated exposure control 2. Adjustment of the mA and/or kV according to patient size 3. Use of iterative reconstruction technique. Comparison: Chest radiograph same day, CTA chest 10/11/2019 FINDINGS: Limitations: None. Lines, Tubes, and Devices: None. Pulmonary Vasculature: Arterial thrombus present in the bilateral main, lobar, and multiple segmental branches involving all lobes of the lungs. Mildly dilated main pulmonary artery measuring up to 3.1 cm in diameter, suggestive of pulmonary hypertension. Lung Parenchyma, Pleura, and Airways: No focal consolidation. No suspicious pulmonary nodule. No pleural effusion. Central airways patent. Lower Neck, Lymph Nodes, and Mediastinum: Visualized thyroid gland within normal limits. No mediastinal, hilar, or axillary lymphadenopathy. Heart, Pericardium, and Thoracic Vessels: Mild right heart strain with asymmetrically enlarged right ventricle. No pericardial effusion. Aortic atherosclerotic calcification without aneurysm. No coronary artery atherosclerotic calcifications are noted, although the study is not optimized for coronary assessment. Bones and Soft Tissues: Multilevel degenerative changes of the thoracic spine. Upper Abdomen: Moderate hiatal hernia. Cholecystectomy. 1.7 cm hypodense left adrenal lesion with eccentric calcification, similar on prior study. IMPRESSION: Extensive bilateral pulmonary emboli with right heart strain and findings sugges tive of pulmonary hypertension. Bilateral Lower Extremity Venous Doppler Ultrasound History: Reason: pe, r/o dvt. / Spl. Instructions: / History: Comparison: None Procedure: Color flow, duplex, spectral analysis and 2D images are obtained with and without compression in the area of the common femoral vein, superficial femoral vein - femoral vein junction, main femoral vein (superficial femoral vein) and popliteal vein. Veins of the proximal calf are also imaged. Findings: There is normal duplex flow, color flow and compressibility of all visualized vein segments. No evidence of deep venous thrombus is present. Impression: No evidence of DVT. R CHEST 1V Clinical History: Reason: chest pain / Spl. Instructions: / History: Technique: AP view of the chest was obtained at 04/28/2020 6:15 PM. Comparison: October 11, 2019. Findings: The cardiomediastinal silhouette is normal. The pulmonary vasculature is normal. The lungs and pleural margins are clear. There is a left-sided calcified granuloma. There is a moderate size hiatal hernia. Impression: No evidence of an acute cardiopulmonary process. VTE Prophylaxis Ordered VTE Prophylaxis Devices: Yes VTE Pharmacological Prophylaxi: Yes Assessment/Plan Assessment/Plan Bilateral PE with right heart strain Unprovoked PE Elevated troponins Elevated BNP Malnutrition Plan: Unprovoked PE the patient has stopped her home Eliquis Placed on heparin drip, will resume home Eliquis tonight. Patient will be taken off heparin drip 1 hour after she received oral dose of Eliquis tonight Elevated troponins and BNP secondary to right heart strain Consultation placed to hematology/oncology due to unprovoked bilateral PE Ultrasound bilateral lower extremities show no evidence of DVT. Resume home medications FEN - Cardiac diet PPX - Heparin, then Eliquis FULL CODE Dispo - inpatient for above Justifications for Admission Chest Pain Indications Poss tachycardia?: Yes Respiratory Distress?: Yes Serious Diagnosis?: Yes Is patient at high risk?: Yes Other Justification MAXIMILIAN ZHANG MD Apr 29, 2020 08:55
[2020-04-29 10:59] VITALS: BP 93/74
[2020-04-29 15:02] VITALS: BP 103/70
[2020-04-29 19:00] VITALS: BP 119/82
--- NOTE | 2020-04-29 20:14 | NUR ---
Assessment completed vss poc explained will resume care and continue to monitor pt.
[2020-04-29] MEDS: APIXABAN 5 MG TABLET. PO SCH (20:55)
[2020-04-29] MEDS: ATORVASTATIN CALCIUM 20 MG TABLET PO SCH (20:55)
[2020-04-29 22:44] VITALS: BP 121/81
[2020-04-30 03:01] VITALS: BP 108/77
[2020-04-30] MEDS: PANTOPRAZOLE 40 MG TABLET.DR. PO SCH (06:10)
[2020-04-30 07:00] VITALS: BP 100/85
[2020-04-30 08:26] LABS: HEMATOCRIT 39.3 % (36.0-47.0); HEMOGLOBIN 13.3 g/dL (12.0-15.5); RED BLOOD COUNT 4.47 x10^6/uL (3.50-5.40); RED CELL DISTRIBUTION WIDTH 13.5 % (11.5-14.5); WHITE BLOOD COUNT 10.3 x10^3/uL (4.0-11.0)
[2020-04-30] MEDS: ASPIRIN 325 MG TABLET PO SCH (08:34)
[2020-04-30] MEDS: APIXABAN 5 MG TABLET. PO SCH ×2 (08:34→20:19)
[2020-04-30] MEDS: CHOLECALCIFEROL (VITAMIN D3) 1,000 UNIT TABLET PO SCH (08:34)
[2020-04-30] MEDS: MULTIVITAMIN with MINERAL TABLET. PO SCH (08:35)
[2020-04-30] MEDS: METOPROLOL TART IMMED RELEASE 25 MG TABLET. PO SCH ×2 (08:35→20:20)
[2020-04-30] MEDS: LISINOPRIL 5 MG TABLET. PO SCH (09:00)
--- NOTE | 2020-04-30 09:01 | PDOC ---
PROGRESS NOTES Date of Service: DATE: 04/30/20 TIME: 08:59 Chief Complaint Chief Complaint Assessment/Plan Bilateral PE with right heart strain Unprovoked PE Elevated troponins secondary to demand ischemia most likely due to emboli burden Elevated BNP Malnutrition Plan: Unprovoked PE the patient has stopped her home Eliquis Placed on heparin drip, will resume home Eliquis tonight. Patient will be taken off heparin drip 1 hour after she received oral dose of Eliquis tonight Elevated troponins and BNP secondary to right heart strain Consultation placed to hematology/oncology due to unprovoked bilateral PE awaiting recommendations Ultrasound bilateral lower extremities show no evidence of DVT. Resume home medications FEN - Cardiac diet PPX - Heparin, then Eliquis FULL CODE Dispo - inpatient for above History of Present Illness History of Present Illness History of Present Illness Patient 64-year-old female with past medical history PE, who presents to the ER with complaints of chest pain for the past 2 days and dyspnea on exertion. She also reports associated lightheadedness and fatigue. She was previously on Eliquis and I believe she was told to stop this medication at some point. Upon evaluation in the ED, CT angiography shows extensive bilateral pulmonary emboli with right heart strain. EKG with no suggestions of acute ischemia. She denies any unilateral leg swelling or hemoptysis. Patient was placed on heparin drip in the ER and admitted for further medical management. 04/30: No acute events reported overnight, case discussed with nursing staff patient in no acute distress no complaints during my visit Vitals Vitals Vital Signs Date Time Temp Pulse Resp B/P (MAP) Pulse Ox O2 Delivery O2 Flow Rate FiO2 04/30/20 08:35 99 100/85 04/30/20 07:00 97.9 16 98 Room Air 97.9 04/29/20 22:44 2.0 Physical Exam Lungs: Clear Labs LABS Laboratory Tests Test 04/29/20 10:57 04/29/20 18:10 04/30/20 08:03 Activated Partial Thromboplast Time > 150 SEC (24-38) 64 SEC (24-38) White Blood Count 10.3 x10^3/uL (4.0-11.0) Red Blood Count 4.47 x10^6/uL (3.50-5.40) Hemoglobin 13.3 g/dL (12.0-15.5) Hematocrit 39.3 % (36.0-47.0) Mean Corpuscular Volume 88 fL (79-100) Mean Corpuscular Hemoglobin 30 pg (25-35) Mean Corpuscular Hemoglobin Concent 34 g/dL (31-37) Red Cell Distribution Width 13.5 % (11.5-14.5) Platelet Count 226 x10^3/uL (140-400) Assessment and Plan Assessmemt and Plan Problems Medical Problems: (1) Chest pain Status: Acute (2) Pulmonary embolism Status: Acute (3) Shortness of breath Status: Acute Comment Review of Relevant I have reviewed the following items teddy (where applicable) has been applied. Labs Laboratory Tests Test 04/28/20 17:35 04/28/20 18:37 04/29/20 01:45 04/29/20 02:00 White Blood Count 10.2 x10^3/uL (4.0-11.0) Red Blood Count 4.95 x10^6/uL (3.50-5.40) Hemoglobin 14.3 g/dL (12.0-15.5) Hematocrit 43.8 % (36.0-47.0) Mean Corpuscular Volume 89 fL (79-100) Mean Corpuscular Hemoglobin 29 pg (25-35) Mean Corpuscular Hemoglobin Concent 33 g/dL (31-37) Red Cell Distribution Width 13.5 % (11.5-14.5) Platelet Count 286 x10^3/uL (140-400) Neutrophils (%) (Auto) 60 % (31-73) Lymphocytes (%) (Auto) 27 % (24-48) Monocytes (%) (Auto) 8 % (0-9) Eosinophils (%) (Auto) 4 % (0-3) Basophils (%) (Auto) 1 % (0-3) Neutrophils # (Auto) 6.2 x10^3/uL (1.8-7.7) Lymphocytes # (Auto) 2.8 x10^3/uL (1.0-4.8) Monocytes # (Auto) 0.8 x10^3/uL (0.0-1.1) Eosinophils # (Auto) 0.4 x10^3/uL (0.0-0.7) Basophils # (Auto) 0.1 x10^3/uL (0.0-0.2) Prothrombin Time 12.9 SEC (11.7-14.0) Prothromb Time International Ratio 1.0 (0.8-1.1) Activated Partial Thromboplast Time 31 SEC (24-38) > 150 SEC (24-38) Sodium Level 142 mmol/L (136-145) 144 mmol/L (136-145) Potassium Level 3.3 mmol/L (3.5-5.1) 3.7 mmol/L (3.5-5.1) Chloride Level 106 mmol/L (98-107) 107 mmol/L (98-107) Carbon Dioxide Level 25 mmol/L (21-32) 25 mmol/L (21-32) Anion Gap 11 (6-14) 12 (6-14) Blood Urea Nitrogen 21 mg/dL (7-20) 19 mg/dL (7-20) Creatinine 0.9 mg/dL (0.6-1.0) 0.8 mg/dL (0.6-1.0) Estimated GFR (Cockcroft-Gault) 63.2 72.4 Glucose Level 151 mg/dL (70-99) 125 mg/dL (70-99) Calcium Level 8.5 mg/dL (8.5-10.1) 8.8 mg/dL (8.5-10.1) Total Bilirubin 0.4 mg/dL (0.2-1.0) Direct Bilirubin 0.1 mg/dL (0.0-0.2) Aspartate Amino Transf (AST/SGOT) 23 U/L (15-37) Alanine Aminotransferase (ALT/SGPT) 33 U/L (14-59) Alkaline Phosphatase 125 U/L (46-116) Troponin I Quantitative 0.140 ng/mL (0.000-0.055) 0.177 ng/mL (0.000-0.055) XF-Vcd-A-Type Natriuretic Peptide 5143 pg/mL (0-124) Total Protein 6.6 g/dL (6.4-8.2) Albumin 3.0 g/dL (3.4-5.0) Lipase 105 U/L (73-393) Thyroid Stimulating Hormone (TSH) 1.959 uIU/mL (0.358-3.74) Coronavirus (PCR) Not detected (Not Detected) Test 04/29/20 07:10 04/29/20 10:57 04/29/20 18:10 04/30/20 08:03 Troponin I Quantitative 0.134 ng/mL (0.000-0.055) Activated Partial Thromboplast Time > 150 SEC (24-38) 64 SEC (24-38) White Blood Count 10.3 x10^3/uL (4.0-11.0) Red Blood Count 4.47 x10^6/uL (3.50-5.40) Hemoglobin 13.3 g/dL (12.0-15.5) Hematocrit 39.3 % (36.0-47.0) Mean Corpuscular Volume 88 fL (79-100) Mean Corpuscular Hemoglobin 30 pg (25-35) Mean Corpuscular Hemoglobin Concent 34 g/dL (31-37) Red Cell Distribution Width 13.5 % (11.5-14.5) Platelet Count 226 x10^3/uL (140-400) Laboratory Tests Test 04/29/20 10:57 04/29/20 18:10 04/30/20 08:03 Activated Partial Thromboplast Time > 150 SEC (24-38) 64 SEC (24-38) White Blood Count 10.3 x10^3/uL (4.0-11.0) Red Blood Count 4.47 x10^6/uL (3.50-5.40) Hemoglobin 13.3 g/dL (12.0-15.5) Hematocrit 39.3 % (36.0-47.0) Mean Corpuscular Volume 88 fL (79-100) Mean Corpuscular Hemoglobin 30 pg (25-35) Mean Corpuscular Hemoglobin Concent 34 g/dL (31-37) Red Cell Distribution Width 13.5 % (11.5-14.5) Platelet Count 226 x10^3/uL (140-400) Medications Current Medications Iohexol (Omnipaque 350 Mg/ml) 100 ml 1X ONCE IV Last administered on 04/28/20at 18:28; Start 04/28/20 at 18:15; Stop 04/28/20 at 18:16; Status DC Info (CONTRAST GIVEN -- Rx MONITORING) 1 each PRN DAILY PRN MC SEE COMMENTS; Start 04/28/20 at 18:15; Stop 04/30/20 at 18:14 Heparin Sodium/ Dextrose 250 ml @ 0 mls/hr CONT PRN IV PER PROTOCOL Last administered on 04/28/20at 19:18; Start 04/28/20 at 18:45; Stop 04/29/20 at 03:10; Status DC Heparin Sodium (Porcine) (Heparin Sodium) 2,550 unit PRN Q6HRS PRN IV FOR UFH LEVEL LESS THAN 0.2; Start 04/28/20 at 18:45; Stop 04/29/20 at 22:00; Status DC Heparin Sodium (Porcine) (Heparin Sodium) 1,250 unit PRN Q6HRS PRN IV FOR UFH LEVEL 0.2 - 0.29; Start 04/28/20 at 18:45; Stop 04/29/20 at 22:00; Status DC Heparin Sodium (Porcine) (Heparin Sodium) 6,750 unit 1X ONCE IV Last administered on 04/28/20at 19:14; Start 04/28/20 at 19:15; Stop 04/28/20 at 19:16; Status DC Apixaban (Eliquis) 10 mg BID PO Last administered on 04/28/20at 22:08; Start 04/28/20 at 21:45; Stop 04/29/20 at 08:26; Status DC Aspirin (Priscilla Aspirin) 325 mg DAILYWBKFT PO Last administered on 04/30/20at 08:34; Start 04/29/20 at 08:00 Atorvastatin Calcium (Lipitor) 20 mg QHS PO Last administered on 04/29/20at 20:55; Start 04/28/20 at 21:45 Lisinopril (Prinivil) 5 mg DAILY PO Last administered on 04/29/20at 08:48; Start 04/29/20 at 09:00 Metoprolol Tartrate (Lopressor) 12.5 mg BID PO Last administered on 04/30/20at 08:35; Start 04/28/20 at 21:45 Vitamin D (Vitamin D3) 2,000 unit DAILY PO Last administered on 04/30/20at 08:34; Start 04/29/20 at 09:00 Cyclobenzaprine HCl (Flexeril) 5 mg PRN TID PRN PO MUSCLE SPASMS; Start 04/28/20 at 21:45 Multivitamins (Thera M Plus) 1 tab DAILY PO Last administered on 04/30/20at 08:35; Start 04/29/20 at 09:00 Pantoprazole Sodium (Protonix) 40 mg DAILYAC PO Last administered on 04/30/20at 06:10; Start 04/29/20 at 07:30 Ondansetron HCl (Zofran) 4 mg PRN Q4HRS PRN IV NAUSEA/VOMITING; Start 04/28/20 at 21:30 Zolpidem Tartrate (Ambien) 5 mg PRN QHS PRN PO INSOMNIA; Start 04/28/20 at 21:30 Acetaminophen (Tylenol) 650 mg PRN Q4HRS PRN PO TEMP OVER 100.4F OR MILD PAIN; Start 04/28/20 at 21:30 Docusate Sodium (Colace) 100 mg PRN BID PRN PO HARD STOOLS Last administered on 04/30/20at 08:34; Start 04/28/20 at 21:30 Guaifenesin (Robitussin) 200 mg PRN Q4HRS PRN PO COUGH; Start 04/28/20 at 21:30 Morphine Sulfate (Morphine Sulfate) 2 mg PRN Q1HR PRN IVP UNRESOLVED PAIN, 1st CHOICE; Start 04/28/20 at 21:30 Tramadol HCl (Ultram) 50 mg PRN Q6HRS PRN PO PAIN; Start 04/28/20 at 21:30 Heparin Sodium/ Dextrose 250 ml @ 0 mls/hr CONT PRN IV PER PROTOCOL; Start 04/29/20 at 03:15; Stop 04/29/20 at 21:58; Status DC Apixaban (Eliquis) 10 mg BID PO Last administered on 04/30/20at 08:34; Start 04/29/20 at 21:00; Stop 05/06/20 at 09:01 Apixaban (Eliquis) 5 mg BID PO ; Start 05/06/20 at 21:00 Active Scripts Active Atorvastatin Calcium 20 Mg Tablet 20 Mg PO QHS 30 Days Metoprolol Tartrate 25 Mg Tablet 12.5 Mg PO BID 30 Days Prednisone 20 Mg Tablet 1 Tab PO BID 7 Days Coumadin (Warfarin Sodium) 10 Mg Tablet 6 Mg PO DAILY PRN 30 Days Eliquis (Apixaban) 5 Mg Tablet 5 Mg PO BID 30 Days 10mg BID for 7 days, then 5mg BID thereafter for 90 days Reported Melatonin 10 Mg Capsule 1 Cap PO QHS 30 Days Meloxicam 15 Mg Tablet 15 Mg PO HS Symbicort 160-4.5 Mcg Inhaler (Budesonide/Formoterol Fumarate) 10.2 Gm Hfa.aer.ad 2 Puff IH BID Cyclobenzaprine Hcl 5 Mg Tablet 1 Tab PO TID PRN Lisinopril 5 Mg Tablet 1 Tab PO DAILY Omeprazole 40 Mg Capsule.dr 1 Cap PO DAILY Vitamin D3 (Cholecalciferol (Vitamin D3)) 2,000 Unit Tablet 1 Tab PO QTH 30 Days Centrum Silver Women Tablet (Multivits-Min/Iron/FA/Lutein) 1 Each Tablet 1 Each PO DAILY Aspirin 325 Mg Tablet 1 Tab PO DAILY Percocet 10-325 Mg Tablet (Oxycodone/Acetaminophen) 1 Each Tablet 1 Tab PO PRN QID PRN Vitals/I & O Vital Sign - Last 24 Hours 04/29/20 04/29/20 04/29/20 04/29/20 10:59 15:02 19:00 19:45 Temp 97.3 97.5 97.9 97.3 97.5 97.9 Pulse 89 96 101 Resp 20 22 18 B/P (MAP) 93/74 (80) 103/70 (81) 119/82 (94) Pulse Ox 97 99 98 O2 Delivery Nasal Cannula Nasal Cannula Nasal Cannula Room Air O2 Flow Rate 1.0 1.0 2.0 04/29/20 04/29/20 04/30/20 04/30/20 20:55 22:44 03:01 07:00 Temp 97.7 98.4 97.9 97.7 98.4 97.9 Pulse 101 108 109 99 Resp 18 16 16 B/P (MAP) 119/82 121/81 (94) 108/77 (87) 100/85 (90) Pulse Ox 98 98 98 O2 Delivery Nasal Cannula Room Air Room Air O2 Flow Rate 2.0 04/30/20 08:35 Pulse 99 B/P (MAP) 100/85 Intake and Output 04/29/20 04/29/20 04/30/20 15:00 23:00 07:00 Intake Total 240 ml 870 ml 0 ml Output Total 1000 ml 100 ml Balance 240 ml -130 ml -100 ml Justicifation of Admission Dx: Justifications for Admission: Justification of Admission Dx: Yes Acute COPD Exacerbation: Acute COPD Exacerbation SUSHILA GUO MD Apr 30, 2020 09:01
[2020-04-30 10:56] VITALS: BP 99/75
--- NOTE | 2020-04-30 11:46 | EKG ---
[facility] [address] [place] [address] Test Date: 2020-04-28 Test Time: 17:14:53 Pat Name: RON DONATO Department: Room: Gender: F School Supervisor: : [id number] Requested By: LAZ VALENTINO Order Number: [id number] Reading MD: Measurements Intervals Stuart Rate: 121 P: 76 WY: 142 QRS: -70 QRSD: 80 T: 42 QT: 292 QTc: 417 Interpretive Statements SINUS TACHYCARDIA ABNORMAL LEFT AXIS DEVIATION QRS(T) CONTOUR ABNORMALITY CONSISTENT WITH ANTERIOR INFARCT AGE UNDETERMINED CONSISTENT WITH INFERIOR INFARCT AGE UNDETERMINED ABNORMAL ECG RI6.01 No previous ECG available for comparison
[2020-04-30 15:00] VITALS: BP 104/56
[2020-04-30 19:30] VITALS: BP 117/76
[2020-04-30] MEDS: ATORVASTATIN CALCIUM 20 MG TABLET PO SCH (20:19)
[2020-04-30 23:25] VITALS: BP 110/77
[2020-05-01 02:08] VITALS: BP 117/64
[2020-05-01 07:00] VITALS: BP 94/59
[2020-05-01] MEDS ORDERED: ANTI-COAG MONITOR BY PHARMACY. MC PRN (08:15)
[2020-05-01] MEDS: ASPIRIN 325 MG TABLET PO SCH (08:49)
[2020-05-01] MEDS: CHOLECALCIFEROL (VITAMIN D3) 1,000 UNIT TABLET PO SCH (08:49)
[2020-05-01] MEDS: APIXABAN 5 MG TABLET. PO SCH (08:49)
[2020-05-01] MEDS: MULTIVITAMIN with MINERAL TABLET. PO SCH (08:49)
[2020-05-01] MEDS: PANTOPRAZOLE 40 MG TABLET.DR. PO SCH (08:49)
[2020-05-01] MEDS: METOPROLOL TART IMMED RELEASE 25 MG TABLET. PO SCH (08:50)
[2020-05-01 11:00] VITALS: BP 129/61
[2020-05-01 11:14] VITALS: BP 129/61
[2020-05-01] MEDS: LISINOPRIL 5 MG TABLET. PO SCH (11:14)
--- NOTE | 2020-05-01 11:28 | PDOC ---
[facility] PROGRESS NOTE Date of Service DOS: DATE: 05/01/20 TIME: 11:21 Chief Complaint Chief Complaint Assessment/Plan Bilateral PE with right heart strain Unprovoked PE Elevated troponins secondary to demand ischemia most likely due to emboli burden Elevated BNP Malnutrition Plan: Unprovoked PE the patient has stopped her home Eliquis Placed on heparin drip, will resume home Eliquis tonight. Patient will be taken off heparin drip 1 hour after she received oral dose of Eliquis tonight Elevated troponins and BNP secondary to right heart strain Consultation placed to hematology/oncology due to unprovoked bilateral PE awaiting recommendations Ultrasound bilateral lower extremities show no evidence of DVT. Resume home medications FEN - Cardiac diet PPX - Heparin, then Eliquis FULL CODE Dispo - inpatient for above History of Present Illness History of Present Illness History of Present Illness Patient 64-year-old female with past medical history PE, who presents to the ER with complaints of chest pain for the past 2 days and dyspnea on exertion. She also reports associated lightheadedness and fatigue. She was previously on Eliquis and I believe she was told to stop this medication at some point. Upon evaluation in the ED, CT angiography shows extensive bilateral pulmonary emboli with right heart strain. EKG with no suggestions of acute ischemia. She denies any unilateral leg swelling or hemoptysis. Patient was placed on heparin drip in the ER and admitted for further medical management. 04/30: No acute events reported overnight, case discussed with nursing staff patient in no acute distress no complaints during my visit 05/01 Pt was seen and examined. Jairo RN; [employer] information systems audit manager. Chart reviewed. Vitals/I&O Vitals/I&O: Vital Signs Date Time Temp Pulse Resp B/P (MAP) Pulse Ox O2 Delivery O2 Flow Rate FiO2 05/01/20 11:14 81 129/61 05/01/20 08:00 Room Air 05/01/20 07:00 97.7 18 95 97.7 I & O 04/30/20 04/30/20 05/01/20 15:00 23:00 07:00 Intake Total 360 ml 0 ml 200 ml Output Total 450 ml 1000 ml Balance -90 ml 0 ml -800 ml Physical Exam General: Alert, Oriented X3, Cooperative, No acute distress Lungs: Clear Review of Systems Review of Systems: No ecchymosis. No fever. Assessment and Plan Assessmemt and Plan Problems Medical Problems: (1) Chest pain Status: Acute (2) Pulmonary embolism Status: Acute (3) Shortness of breath Status: Acute 05/01 Assessment Bilateral PE with right heart strain, unprovoked PE. Elevated BNP. Malnutrition. Elevated troponins secondary to demand ischemia. Plan: 1 Continue eliquis 2 Cardiac monitoring 3 Home meds 4 Full code 5 Appreciate subspecialist input 6 Probable d/c later today Comment Review of Relevant I have reviewed the following items teddy (where applicable) has been applied. Justifications for Admission Chest Pain Indications Poss tachycardia?: Yes Respiratory Distress?: Yes Serious Diagnosis?: Yes Is patient at high risk?: Yes Other Justification CLARISSA EMERY III DO May 01, 2020 11:28
--- NOTE | 2020-05-01 12:10 | PDOC2 ---
CONSULT Date of Consult Date of Consult DATE: 05/01/20 TIME: 12:03 Reason for Consult Reason for Consult: Recurrent pulmonary embolism Referring Physician Referring Physician: Dr. Martin Identification/Chief Complaint Chief Complaint Shortness of breath Source Source: Caregiver, Chart review, Patient History of Present Illness Reason for Visit: Luna Bland is a 64-year-old female with history of provoked pulmonary embolism in 2019 who has been admitted to the hospital for further management after presenting with shortness of breath. Patient reports noticing sudden onset chest pain and dyspnea at rest 2 days ago. She denies recent travel, car travel, estrogen supplementation, orthopedic surgeries, immobilization. She came into the emergency room for further evaluation and was found to have extensive bilateral pulmonary emboli with right heart strain and findings suggestive of pulmonary hypertension. Lower extremity DVT was not noted on Doppler. She has been started on Eliquis. She has previously been diagnosed with saddle PE in March 2019. No associated lower extremity DVT was found at the time. She reports that she was treated with Eliquis for 9 months and had discontinued Eliquis in December 2019. She had not experienced significant bleeding with Eliquis. She reports a family history of VTE in her mother. She does not recall additional information since she is not close to her mother. She has no other family history of clotting disorders. She does smoke 1 pack/day and states that she stopped smoking 3 days prior to her hospitalization. Past Medical History Cardiovascular: HTN Pulmonary: Pulmonary embolus GI: GERD Heme/Onc: No pertinent hx Hepatobiliary: No pertinent hx Psych: No pertinent hx Musculoskeletal: Osteoarthritis Rheumatologic: No pertinent hx Infectious disease: No pertinent hx Renal/: No pertinent hx Endocrine: No pertinent hx Past Surgical History Past Surgical History: Hysterectomy Family History Family History: Diabetes, Hypertension Social History Quit ALCOHOL: occassional Drugs: None Lives: with Family Current Problem List Problem List Problems Medical Problems: (1) Chest pain Status: Acute (2) Pulmonary embolism Status: Acute (3) Shortness of breath Status: Acute Current Medications Current Medications Current Medications Iohexol (Omnipaque 350 Mg/ml) 100 ml 1X ONCE IV Last administered on 04/28/20at 18:28; Start 04/28/20 at 18:15; Stop 04/28/20 at 18:16; Status DC Info (CONTRAST GIVEN -- Rx MONITORING) 1 each PRN DAILY PRN MC SEE COMMENTS; Start 04/28/20 at 18:15; Stop 04/30/20 at 18:14; Status DC Heparin Sodium/ Dextrose 250 ml @ 0 mls/hr CONT PRN IV PER PROTOCOL Last administered on 04/28/20at 19:18; Start 04/28/20 at 18:45; Stop 04/29/20 at 03:10; Status DC Heparin Sodium (Porcine) (Heparin Sodium) 2,550 unit PRN Q6HRS PRN IV FOR UFH LEVEL LESS THAN 0.2; Start 04/28/20 at 18:45; Stop 04/29/20 at 22:00; Status DC Heparin Sodium (Porcine) (Heparin Sodium) 1,250 unit PRN Q6HRS PRN IV FOR UFH LEVEL 0.2 - 0.29; Start 04/28/20 at 18:45; Stop 04/29/20 at 22:00; Status DC Heparin Sodium (Porcine) (Heparin Sodium) 6,750 unit 1X ONCE IV Last administered on 04/28/20at 19:14; Start 04/28/20 at 19:15; Stop 04/28/20 at 19:16; Status DC Apixaban (Eliquis) 10 mg BID PO Last administered on 04/28/20at 22:08; Start 04/28/20 at 21:45; Stop 04/29/20 at 08:26; Status DC Aspirin (Priscilla Aspirin) 325 mg DAILYWBKFT PO Last administered on 05/01/20at 08:49; Start 04/29/20 at 08:00 Atorvastatin Calcium (Lipitor) 20 mg QHS PO Last administered on 04/30/20at 20:19; Start 04/28/20 at 21:45 Lisinopril (Prinivil) 5 mg DAILY PO Last administered on 05/01/20at 11:14; Start 04/29/20 at 09:00 Metoprolol Tartrate (Lopressor) 12.5 mg BID PO Last administered on 05/01/20at 08:50; Start 04/28/20 at 21:45 Vitamin D (Vitamin D3) 2,000 unit DAILY PO Last administered on 05/01/20at 08:49; Start 04/29/20 at 09:00 Cyclobenzaprine HCl (Flexeril) 5 mg PRN TID PRN PO MUSCLE SPASMS Last administered on 04/30/20at 20:24; Start 04/28/20 at 21:45 Multivitamins (Thera M Plus) 1 tab DAILY PO Last administered on 05/01/20at 08:49; Start 04/29/20 at 09:00 Pantoprazole Sodium (Protonix) 40 mg DAILYAC PO Last administered on 05/01/20at 08:49; Start 04/29/20 at 07:30 Ondansetron HCl (Zofran) 4 mg PRN Q4HRS PRN IV NAUSEA/VOMITING; Start 04/28/20 at 21:30 Zolpidem Tartrate (Ambien) 5 mg PRN QHS PRN PO INSOMNIA Last administered on 04/30/20at 20:24; Start 04/28/20 at 21:30 Acetaminophen (Tylenol) 650 mg PRN Q4HRS PRN PO TEMP OVER 100.4F OR MILD PAIN; Start 04/28/20 at 21:30 Docusate Sodium (Colace) 100 mg PRN BID PRN PO HARD STOOLS Last administered on 04/30/20at 08:34; Start 04/28/20 at 21:30 Guaifenesin (Robitussin) 200 mg PRN Q4HRS PRN PO COUGH; Start 04/28/20 at 21:30 Morphine Sulfate (Morphine Sulfate) 2 mg PRN Q1HR PRN IVP UNRESOLVED PAIN, 1st CHOICE; Start 04/28/20 at 21:30 Tramadol HCl (Ultram) 50 mg PRN Q6HRS PRN PO PAIN; Start 04/28/20 at 21:30 Heparin Sodium/ Dextrose 250 ml @ 0 mls/hr CONT PRN IV PER PROTOCOL; Start 04/29/20 at 03:15; Stop 04/29/20 at 21:58; Status DC Apixaban (Eliquis) 10 mg BID PO Last administered on 05/01/20at 08:49; Start 04/29/20 at 21:00; Stop 05/06/20 at 09:01 Apixaban (Eliquis) 5 mg BID PO ; Start 05/06/20 at 21:00 Info (Anti-Coagulation Monitoring By Pharmacy) 1 each PRN DAILY PRN MC SEE COMMENTS; Start 05/01/20 at 08:15 Active Scripts Active Atorvastatin Calcium 20 Mg Tablet 20 Mg PO QHS 30 Days Metoprolol Tartrate 25 Mg Tablet 12.5 Mg PO BID 30 Days Prednisone 20 Mg Tablet 1 Tab PO BID 7 Days Coumadin (Warfarin Sodium) 10 Mg Tablet 6 Mg PO DAILY PRN 30 Days Eliquis (Apixaban) 5 Mg Tablet 5 Mg PO BID 30 Days 10mg BID for 7 days, then 5mg BID thereafter for 90 days Reported Melatonin 10 Mg Capsule 1 Cap PO QHS 30 Days Meloxicam 15 Mg Tablet 15 Mg PO HS Symbicort 160-4.5 Mcg Inhaler (Budesonide/Formoterol Fumarate) 10.2 Gm Hfa.aer .ad 2 Puff IH BID Cyclobenzaprine Hcl 5 Mg Tablet 1 Tab PO TID PRN Lisinopril 5 Mg Tablet 1 Tab PO DAILY Omeprazole 40 Mg Capsule.dr 1 Cap PO DAILY Vitamin D3 (Cholecalciferol (Vitamin D3)) 2,000 Unit Tablet 1 Tab PO QTH 30 Days Centrum Silver Women Tablet (Multivits-Min/Iron/FA/Lutein) 1 Each Tablet 1 Each PO DAILY Aspirin 325 Mg Tablet 1 Tab PO DAILY Percocet 10-325 Mg Tablet (Oxycodone/Acetaminophen) 1 Each Tablet 1 Tab PO PRN QID PRN Allergies Allergies: Coded Allergies: No Known Drug Allergies (Unverified , 06/17/13) ROS General: YES: Fatigue, Malaise PSYCHOLOGICAL ROS: No: Hallucinations, Hostility Eyes: No Itchy Eyes HEENT: No: Oral lesions, Sinus pain ALLERGY AND IMMUNOLOGY: No: Nasal Congestion, Post Nasal Drip Hematological and Lymphatic: No: Brusing, Night Sweats ENDOCRINE: YES: Malaise/lethargy Respiratory: YES: Pleuritic Pain, Shortness of breath Cardiovascular: No Palpitations Gastrointestinal: No Nausea, No Vomiting, No Abdominal Pain, No Diarrhea Genitourinary: No Dysuria, No Frequency, No Incontinence Musculoskeletal: No Gait Disturbance, No Joint Pain Neurological: No Behavorial Changes, No Bowel/Bladder ControlChng Skin: No Dry Skin, No Eczema Physical Exam General: Alert, Oriented X3 HEENT: Atraumatic Lungs: Clear to auscultation Heart: Regular rate, Normal S1, Normal S2 Abdomen: Normal bowel sounds, Soft Extremities: No clubbing, No cyanosis Skin: No rashes Neuro: Normal gait MUSCULOSKELETAL: No swelling Vitals VITALS Vital Signs Date Time Temp Pulse Resp B/P (MAP) Pulse Ox O2 Delivery O2 Flow Rate FiO2 05/01/20 11:14 81 129/61 05/01/20 11:00 98.1 18 96 Room Air 98.1 Labs Labs Laboratory Tests Test 04/29/20 18:10 04/30/20 08:03 Activated Partial Thromboplast Time 64 SEC (24-38) White Blood Count 10.3 x10^3/uL (4.0-11.0) Red Blood Count 4.47 x10^6/uL (3.50-5.40) Hemoglobin 13.3 g/dL (12.0-15.5) Hematocrit 39.3 % (36.0-47.0) Mean Corpuscular Volume 88 fL (79-100) Mean Corpuscular Hemoglobin 30 pg (25-35) Mean Corpuscular Hemoglobin Concent 34 g/dL (31-37) Red Cell Distribution Width 13.5 % (11.5-14.5) Platelet Count 226 x10^3/uL (140-400) Assessment/Plan Assessment/Plan Assessment: Recurrent pulmonary embolism, unprovoked Right heart strain NSTEMI, type II Tobacco abuse Recommendations -Agree with indefinite anticoagulation. Eliquis 5 mg twice daily is reasonable choice -Given second instance of unprovoked pulmonary embolism, I recommended additional evaluation for inherited and acquired hypercoagulable syndromes: Protein C, protein S, Antithrombin III, lupus anticoagulant, antibeta-2 glycoprotein, anticardiolipin -Testing for PT gene mutation and factor V Leiden is not available inpatient and will be completed in the office -We will arrange follow-up in hematology clinic in 1 month to review results of hypercoagulable syndrome testing and discuss additional recommendations regarding anticoagulation -Patient on ceasing tobacco use. Will follow up at her office visit -Rest per Dr. Mario Grey MD Medical Oncology/Hematology Ph: [phone] ARBEN GREY MD May 01, 2020 12:10
[2020-05-01] MEDS ORDERED: APIX5TAB PO ×2 (12:16→12:20)
--- NOTE | 2020-05-01 13:35 | NUR ---
SS following for discharge planning. SS reviewed pt chart and discussed with pt RN. Pt is from home with spouse and is currently on room air. Discharge order on the chart for home with self care.
--- NOTE | 2020-05-01 14:50 | NUR ---
Discharge Note: RON DONATO [address] [place] [address] Discharge instructions and discharge home medications reviewed with Patient and a copy given. All questions have been answered and understanding verbalized. The following instructions and handouts were given: discharge instructions, prescriptions, PE info, eliquis info. Discontinued lines and drains: Peripheral IV intact. Patient discharged to Home or Self Care with Spouse via Ambulated at 1450.
[2020-05-05 07:31] LABS: ANTITHROMBIN III SEE SEPARATE REPORT; CARDIOLIPIN ANTIBODIES SEE SEPARATE REPORT
[2020-05-05 07:32] LABS: LUPUS ANTICOAGULANT SEE SEPARATE REPORT
[2020-05-06] MEDS ORDERED: APIXABAN 5 MG TABLET. PO SCH (21:00)
--- NOTE | 2020-05-30 11:41 | DS ---
DATE OF DISCHARGE: 05/01/2020 ADMISSION DIAGNOSIS: Pulmonary emboli. DISCHARGE DIAGNOSES: Resolving pulmonary emboli, malnutrition, gastroesophageal reflux disease, hypertension, chronic knee pain, history of knee replacement, left bunion surgery. CONSULTS: Hematology/Oncology. HOSPITAL COURSE: The patient is a pleasant middle-aged female who presented with unprovoked bilateral pulmonary emboli. She was admitted. We have put her on heparin and then changed over to p.o. Eliquis. We also consulted Hematology. Basically, the patient was doing well and was discharged on p.o. Eliquis. DISPOSITION: Home. ACTIVITY: As tolerated. DIET: Low sodium. MEDICATIONS: Please see the MRAD. TOTAL TIME: 32 minutes. CLARISSA EMERY DO DR: GERONIMO/socorro JOB#: [id number] / [id number]
== END 2020-05-01 14:50 | disposition home or self-care (01) | DRG 175 ==
LOC: ER 17:03 → 2 SOUTH 20:54 → 2 NORTH 05-01 02:00
PROVIDERS: ADMIT Internal Medicine; ATTEND Internal Medicine
DX: I26.99 Other pulmonary embolism without acute cor pulmonale (principal); I21.A1 Myocardial infarction type 2; E46 Unspecified protein-calorie malnutrition; E78.5 Hyperlipidemia, unspecified; F17.210 Nicotine dependence, cigarettes, uncomplicated; I10 Essential (primary) hypertension; Z96.659 Presence of unspecified artificial knee joint; G89.29 Other chronic pain; K21.9 Gastro-esophageal reflux disease without esophagitis; M19.90 Unspecified osteoarthritis, unspecified site; I51.89 Other ill-defined heart diseases; Z20.822 Contact with and (suspected) exposure to COVID-19; Z82.49 Family history of ischemic heart disease and other diseases of the circulatory system; Z83.3 Family history of diabetes mellitus; Z90.710 Acquired absence of both cervix and uterus; Z68.32 Body mass index [BMI] 32.0-32.9, adult
CPT/HCPCS: 36415; 71045; 71275; 80048; 80076; 83036; 83690; 83880; 84443; 84484; 85025; 85027; 85300; 85302; 85306; 85610; 85730; 86146; 86147; 93005; 93970; 96365; 96366; 96376; 99285; J1644; Q9967; U0003; G0378

== ENCOUNTER → 2020-06-02 | Outpatient (CLI) | payer MEDICARE ==
[~2020-06-02] MED LIST changes: +BUDE10.2 IH; +MELA10CA PO; +MELO15TA23 PO; +OMEP40CA45 PO; -OMEP40CA7 PO
--- NOTE | 2020-06-04 09:57 | RAD ---
Exam Date: 06/02/2020 10:[address] [facility]OR[facility] WO Indication: Reason: COPD / Spl. Instructions: / History: TECHNIQUE: CT scan of the chest was performed without intravenous contrast. One or more of the fo [facility] dose reduction techniques were utilized: *Automated exposure control (AEC) *Adjustment of mA and/or kV according to patient size *Use of iterative reconstruction technique *CT scan done according to ALARA, or ALARA/IMAGE GENTLY COMPARISON: April 28, 2020 FINDINGS: The central airways are patent. There is no focal consolidation, pleural effusion or pneumothorax. C alcified granulomas are seen in the lungs. The visualized thyroid gland is within normal limits. No lymphadenopathy is seen. The heart is normal in size with trace pericardial effusion. Aorta is normal in caliber with atherosclerotic calcifications. Images of the upper abdomen demonstrate a moderate to large hiatal hernia. Degenerative changes are seen in the spine. IMPRESSION: No focal consolidation. No suspicious lung nodules. Electronically signed by: Jose Mckeon MD (06/02/2020 1:07 PM) [id number]
== END ==
LOC: CT 16:00
PROVIDERS: ATTEND Internal Medicine Pulmonary Disease
DX: I70.0 Atherosclerosis of aorta (principal); J44.9 Chronic obstructive pulmonary disease, unspecified; J84.10 Pulmonary fibrosis, unspecified; K44.9 Diaphragmatic hernia without obstruction or gangrene; M47.814 Spondylosis without myelopathy or radiculopathy, thoracic region
CPT/HCPCS: 71250

== ENCOUNTER → 2020-06-27 | Outpatient (CLI) | payer MEDICARE ==
[2020-06-29 08:19] LABS: CARDIOLIPIN ANTIBODIES SEE SEPARATE REPORT
[2020-06-29 08:20] LABS: ANTITHROMBIN III SEE SEPARATE REPORT
== END ==
LOC: ONCLAB 09:58
PROVIDERS: ATTEND Internal Medicine Hematology & Oncology
DX: I26.02 Saddle embolus of pulmonary artery with acute cor pulmonale (principal)
CPT/HCPCS: 81240; 81241; 85300; 85610; 86146; 86147

== ENCOUNTER → 2020-07-27 | Outpatient (CLI) | payer MEDICARE ==
--- NOTE | 2020-07-27 16:34 | CARD ---
MR#: [id number] Date of Study: 07/27/2020 Ordering Physician: BLAS CARRASCO, Referring Physician: BLAS CARRASCO, Tech: Luna Lanier [facility] APPROVED REPORT EXAM: Two-dimensional and M-mode echocardiogram with Doppler and color Doppler. Other Information Quality : AverageHR: 88bpm Rhythm : NSR INDICATION COPD RISK FACTORS Hypertension Hyperlipidemia Smoking 2D DIMENSIONS Left Atrium(2D)3.8 (1.6-4.0cm)IVSd0.9 (0.7-1.1cm) Aortic Root(2D)3.2 (2.0-3.7cm)LVDd4.5 (3.9-5.9cm) LVOT Diameter2.1 (1.8-2.4cm)PWd0.9 (0.7-1.1cm) LVDs2.5 (2.5-4.0cm)FS (%) 44.1 % SV69.1 ml Aortic Valve AoV Peak Rohit.129.6cm/sAoV VTI23.6cm AO Peak GR.6.7mmHgLVOT Peak Rohit.82.9cm/s LVOT VTI 16.03cmAO Mean GR.4mmHg MONA (VMAX)2.57bu4LVZ (VTI)2.26cm2 Mitral Valve MV E Hslhalrm19.8cm/sMV DECEL [id number] MV A Sfapbhie90.1cm/sMV NVU07tx E/A Ratio0.8MVA (PHT)3.30cm2 TDI E/Lateral E'7.2E/Medial E'7.9 Tricuspid Valve TR P. Aqguoqor441nk/sTR Peak Gr.28mmHg LEFT VENTRICLE The left ventricle is normal size. There is normal left ventricular wall thickness. The systolic func tion is low normal. Estimated ejextion fraction is 50%. There is normal LV segmental wall motion. Tra nsmitral Doppler flow pattern is Grade I-abnormal relaxation pattern. RIGHT VENTRICLE The right ventricle is normal size. There is normal right ventricular wall thickness. The right ventr icular systolic function is normal. ATRIA The left atrium size is normal. The right atrium size is normal. The interatrial septum is intact wit h no evidence for an atrial septal defect or patent foramen ovale as noted on 2-D or Doppler imaging. AORTIC VALVE The aortic valve is normal in structure and function. Doppler and Color Flow revealed no significant aortic regurgitation. There is no significant aortic valvular stenosis. MITRAL VALVE The mitral valve is normal in structure and function. There is no evidence of mitral valve prolapse. There is no mitral valve stenosis. Doppler and Color Flow revealed no mitral valve regurgitation note d. TRICUSPID VALVE The tricuspid valve is normal in structure and function. Doppler and Color Flow revealed no tricuspid valve regurgitation noted. There is no tricuspid valve stenosis. PULMONIC VALVE The pulmonary valve is normal in structure and function. Doppler and Color Flow revealed no pulmonic valvular regurgitation. GREAT VESSELS The aortic root is normal in size. The ascending aorta is normal in size. The IVC is normal in size a nd collapses >50% with inspiration. PERICARDIAL EFFUSION There is no evidence of significant pericardial effusion. Critical Notification Critical Value: No <Conclusion> The left ventricle is normal size. The systolic function is low normal. Estimated ejextion fraction is 50%. Doppler and Color Flow revealed no significant aortic regurgitation. There is no significant aortic valvular stenosis. Doppler and Color Flow revealed no mitral valve regurgitation noted. Doppler and Color Flow revealed no tricuspid valve regurgitation noted. Signed by : Blas Carrasco MD Electronically Approved : 07/27/2020 16:33:23
== END ==
LOC: ECHO 15:02
PROVIDERS: ATTEND Internal Medicine Cardiovascular Disease
DX: I27.20 Pulmonary hypertension, unspecified (principal); J44.9 Chronic obstructive pulmonary disease, unspecified
CPT/HCPCS: 93306

== ENCOUNTER → 2021-06-15 | Outpatient (CLI) | payer MEDICARE ==
[~2021-06-15] MED LIST changes: +CYCL10TA19 PO; -CYCL10TA2 PO; -LISI-517 PO; +LISI5TAB15 PO; -OMEP40CA45 PO; +OMEP40CA7 PO
--- NOTE | 2021-06-15 14:14 | RAD ---
CT THORAX WO dated 06/15/2021 10:52 AM Indication:Reason: SOA, SMOKER / Spl. Instructions: / History: Comparison: CT 06/02/2020. Technique: Helical noncontrast images were performed. One or more of the following individualized dose reduction techniques were utilized for this examinat ion: 1. Automated exposure control 2. Adjustment of the mA and/or kV according to patient size 3. Use of iterative reconstruction technique Findings: There is evidence of previous granulomatous infection. No significant lung nodule is seen. There is m inimal scarring or atelectasis in the middle lobe and lingula. The central airways show no obstructio n. No enlarged lymph nodes are seen. A moderate-sized hiatal hernia is again demonstrated. Images through the upper abdomen again show a small left adrenal nodule with internal calcification, unchanged from the prior exam. No new abnormality is seen. IMPRESSION: No significant new lung nodule or other new abnormality. Electronically signed by: Mauri Arellano Jr., MD (06/15/2021 2:12 PM) [facility]
== END ==
LOC: CT 10:50
PROVIDERS: ATTEND Internal Medicine Pulmonary Disease
DX: R06.02 Shortness of breath (principal); K44.9 Diaphragmatic hernia without obstruction or gangrene; E27.8 Other specified disorders of adrenal gland
CPT/HCPCS: 71250